=== PATIENT | male | born 1975 | race Caucasian/White ===

== ENCOUNTER 2023-10-19 08:47 | Outpatient (RCR) | payer MEDICAID, SELFPAY ==
[2023-10-19 09:21] VITALS: BP 190/87; PULSE 99; RESP 18; TEMP 37
--- NOTE | 2023-10-19 13:14 | HP.PCM_ITS ---
History of Present Illness Date of Service: 10/19/23 Chief Complaint: Nonhealing surgical wound History of Wound: Mr. Gusman is a 48-year-old referred to the wound center by his PCP due to nonhealing surgical wound. He had presented to the emergency room/hospital following a 2-week period of feeling unwell in August and subsequently went on to have surgery due to necrotizing fasciitis. Had a wound VAC post-surgery. He states that surgery was uneventful and wound healing process was also largely really good save for an area that has not closed. He has had a nurse come in for dressing. Reports a history of borderline diabetes however, his last A1c was at 6.6. History of tobacco use. He states that his appetite is good and he feels well otherwise. [facility] Medical History (Updated 10/19/23 @ 13:[address] Brenden Drummond MD) Tobacco abuse Obesity Type 2 diabetes mellitus Nonhealing surgical wound Encounter for screening for COVID-19 history of leg laceration and sutures neck and back pain Knee pain Home Medications ?Medication ?Instructions ?Recorded ?Last Taken ?Type acetaminophen 500 mg tablet 1,000 mg PO Q6H PRN pain 10/19/23 Unknown History (Tylenol Extra Strength) ergocalciferol (vitamin D2) 1,250 1,250 mcg PO QWEEK 10/19/23 Unknown History mcg (50,000 unit) capsule ibuprofen 600 mg tablet 600 mg PO Q6H 10/19/23 Unknown History pantoprazole 40 mg tablet,delayed 40 mg PO DAILY 10/19/23 Unknown History release Allergy/AdvReac Type Severity Reaction Status Date / Time No Known Allergies Allergy Verified 10/19/23 09:17 Social History Smoking Status: Current every day smoker alcohol intake: current ROS Constitutional Constitutional: Denies body ache(s), change in weight, fatigue, fever(s), frequent falls, headache(s) or increased appetite Eyes Eyes: Denies blindness, blind spots, bloody eye, blurry vision, change in eye color, decreased night vision, discharge from eye(s), discongugate gaze, double vision or dry eyes ENT HEENT: Denies abnormal hearing, change in voice, dental pain, dizziness, dry mouth, dysphagia, ear discharge, foreign body in nose, halitosis or headache(s) Cardiovascular Cardiovascular: Denies bluish discoloration of hand/feet, chest pain, claudication, cold extremities, cyanosis or diaphoresis Respiratory/Chest Respiratory/Chest: Denies difficulty clearing secretions, dry cough, excessive phlegm production, hemoptysis, hoarseness or inability to speak Gastrointestinal Gastrointestinal: Denies belching, chewing difficulty, coffee ground emesis, dry heaves, excessive flatus or fecal incontinence Genitourinary Genitourinary: Denies abdominal discomfort, difficulty urinating, flank pain, genital lesions or low back pain Musculoskeletal Musculoskeletal: Denies atrophy, joint swelling, loss of height, muscle cramps or muscle weakness Integumentary Integumentary: Reports non-healing lesions; Denies change in pigmentation, changing lesions, erythema, hirsutism or jaundice Neurologic Neurologic: Denies abnormal movements, abnormal speech, behavior changes, burning sensations, confusion, convulsions, disequilibrium or lack of coordination Psychiatric Psychiatric: Denies auditory hallucinations, behavioral changes, change in appetite, cognitive impairment, confusion, difficulty concentrating, hallucinations, tactile hallucinations or visual hallucinations Endocrine Endocrinology: Denies change in body appearance, cold intolerance, deepening of the voice, excessive sweating, heat intolerance or increase in ring/shoe/hat size Hematologic/Lymphatic Hematologic/Lymphatic: Denies easy bleeding, easy bruising or lymphadenopathy Allergic/Immunologic Allergic/Immunologic: Denies itchy eyes, lip swelling, rhinitis, throat swelling, tongue swelling, eczemia or wheezing Vital Signs Vital Signs Vital Signs: 10/19/23 09:21 Temperature 98.6 F Temperature Source Temporal Pulse Rate 99 Respiratory Rate 18 Blood Pressure 190/87 H Blood Pressure Mean 121 Blood Pressure Source Monitor Blood Pressure Position Semi-Fowlers Blood Pressure Location Left Arm Oxygen Delivery Method Room Air Physical Exam Const alert, oriented x3 and no apparent distress General Appearance: cooperative and comfortable HEENT normocephalic and head/scalp atraumatic Head and Scalp: normal to inspection Eyes EOMs intact bilaterally General Eye: normal appearance of both eyes Neck full ROM and supple General: normal visual inspection Resp normal respiratory effort and normal air movement Effort and Inspection: able to speak in complete sentences Cardio regular rate, regular rhythm, S1 normal heart sound and S2 normal heart sound GI soft to palpation and non-tender Extremity General Extremity: edema Skin Wounds: wounds noted margins well approximated, no odor and open Neuro oriented x3, CN's II-XII intact bilaterally, moves all extremities and no focal motor deficits Psych mental status grossly normal, thought process normal, cooperative, affect normal and speech normal Debridement Note Debridement Note Wound debrided: Lower back Type of Debridement: Excisional debridement Anesthesia Used: 4% Lidocaine Solution Depth: Down to and including healthy tissue and in the subcutaneous layer Percentage of wound debrided: 100 Instrument Used: 3mm curette Tissue Removed: Slough and devitalized tissue Severity: Fat Layer Exposed Amount of bleeding with debridement: Mild Bleeding Controlled with: Pressure Patient tolerated procedure: Patient tolerated procedure well Post-Debridement Measurements and Additional Note: Post-Debridement Measurements/Treatment CRISTOPHER - Nurse 1 - General Ulcer Assessment Start: 10/19/23 09:21 Freq: Status: Active Protocol: MARGARITO Activity Type Activity Date Activity User E-sign Co-sign Detail Recorded Client Recorded Date Recorded By Document 10/19/23 09:21 ELENO [id number] 10/19/23 09:33 ELENO 10/19/23 09:21 - Today's Visit Information Type of service Initial Visit Arrival Mode Ambulatory,Cane Patient Identification Verified (Name & Yes ) Vital Signs Temperature (97.8 F-99.1 F) 98.6 F Temperature Source Temporal Pulse Rate (60-100) 99 Pulse Location Monitor Respiratory Rate (12-18) 18 Respiratory rate source Observation Oxygen Delivery Method Room Air Blood Pressure (90/60-120/80) 190/87 H Blood Pressure Mean 121 Source Monitor Position Semi-Fowlers Blood Pressure Location Left Arm History Since Last Visit- (Skip if this is Patient's initial visit) Left Footwear Regular Shoe Right Footwear Regular Shoe Pain Scale: 0-10 Numeric Is Patient Pain Free? No RT BACK -Description Tightness -Alleviating Factors/Interventions Medication Communication Assessment Preferred language Dominican Interlocking Tower Operator Required No Able to Read Yes Able to Write Yes Communication Tools None Caregiver Communication Skills No Impairment Impairment Right Hearing Abillity Normal Left Hearing Abillity Normal Visual Assistive Devices None Teaching Assessment Preferences Verbal,Written, Demonstration Barriers to Learning None Readiness To Learn Excellent Willingness to Engage in Self Management High Activies Readiness to Engage in Self Management High Activities Anxiety Level Calm Cooperation Cooperative Perception Coherent Interest in Health Problem Asks Questions Education Importance Acknowledges Need Does Patient Smoke tobacco or other Yes substances Smoking Status Current every day smoker Is Patient Diabetic No Functional Assessment Recent Decline in Ability to Perform Denies Any Declines 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 Hoop Machine Operator to contact place of denominational No WC - Nurse 1 - General Ulcer Measurement Start: 10/19/23 09:21 Freq: Status: Active Protocol: Activity Type Activity Date Activity User E-sign Co-sign Detail Recorded Client Recorded Date Recorded By Document 10/19/23 09:21 [id number] 10/19/23 09:33 10/19/23 09:21 Wound Center Nurse 1 #1 MID BACK -Current Size (cm) - Length 0.6 -Current Size (cm) - Width 0.3 -Current Size (cm) - Depth 0.8 -Total Square Cm 0.18 -Date of Last Picture (Recall this 10/19/23 field) -Exudate Amt Small -Exudate Type Serosanguineous -Wound Margin Distinct, Outline Attached -Granulation Amt Small (1-33%) -Granulation Quality Lacoste -Necrosis Amt Large (67-100%) -Necrotic Tissue Type Adherent Slough -Texture (Iza-wound Skin Appearance) Assessed, Scarring -Moisture (Iza-wound Skin Appearance) Assessed -Color (Iza-wound Skin Appearance) Assessed -Temperature (Iza-wound Skin No Abnormality Appearance) (Pt Warm) -Tenderness on Palpation (Iza-wound No Skin Appearance) -Ulcer Cleansing Rinsed/ Irrigated with Saline -Foul Odor after Cleansing No -Anesthetic Used 5% Lidocaine Gel WC - Nurse 2 - General Ulcer CM Notes Start: 10/19/23 09:21 Freq: Status: Active Protocol: Activity Type Activity Date Activity User E-sign Co-sign Detail Recorded Client Recorded Date Recorded By Document 10/19/23 09:52 [id number] 10/19/23 10:04 10/19/23 09:52 Wound Center Nurse 2 -Time 09:53 -Correct Patient Yes -Correct Side, Site, Position Yes -Correct Procedure Yes -Procedure Performed Yes -Type of Procedure Debridement -Clinical Debridement Subcutaneous -Tissue Removed Subcutaneous -Post Debridement (cm) - Length 0.1 -Post Debridement (cm) - Width 0.8 -Post Debridement (cm) - Depth 1.7 -Total Square (Post) (cm) 0.08 -Area of Debridement (cm) - Length 0.1 -Area of Debridement (cm) - Width 0.8 -Total Square (Area) (cm) 0.08 -Tunneling No -Undermining/Tunneling No -Circular Undermining No -Wound/Ulcer Outcome Not Healed -Ulcer Cleansing Rinsed/ Irrigated with Saline -Foul Odor after Cleansing No -Bioengineered Tissue No -Bleeding Controlled with Pressure -Treatment Response Procedure Tolerated Well -Debridement - Subq, 1st 20sq cm Yes Pain Scale: 0-10 Numeric Is Patient Pain Free? Yes Charges/Coding Visit Charges Office Visits / Consults: [id number] OV L4 New 45min Procedures Integumentary 111xxx-113xx: 50307 Veronique subq tissue 20 sq cm/< Assessment/Plan Assessment/Plan (1) Nonhealing surgical wound: CODE(S): T81.89XA - Other complications of procedures, not elsewhere classified, initial encounter (2) Type 2 diabetes mellitus: CODE(S): E11.9 - Type 2 diabetes mellitus without complications (3) Obesity: CODE(S): E66.9 - Obesity, unspecified (4) Tobacco abuse: CODE(S): Z72.0 - Tobacco use PLAN: Plan Debridement done as documented above, procedure was well-tolerated. Significant depth on examination, no significant drainage however. Cultures taken, will review. For now, clean daily and pack with iodoform. Cover with gauze and tape. May change if soiled/soaked. He was advised that he is diabetic with an A1c of 6.6, lifestyle and dietary modifications recommended. Optimal protein intake and smoking cessation is also recommended. He voiced understanding. Will request labs/records from his recent hospital stay. His questions were answered and he was advised to call with any further questions or concerns. Follow-up in a week or sooner if needed. This note was generated with [employer] dictation software. It may contain incorrect words, spelling, and punctuation that were not noted in checking the note before signing.
--- NOTE | 2023-10-25 09:11 | WC ---
PHOTO 10/19/23 MID BACK
--- NOTE | 2023-10-27 08:59 | WC ---
PHOTO 10/19/23 MID BACK
== END 2023-10-21 23:59 | disposition home or self-care (01) ==
LOC: WC 08:47
PROVIDERS: PCP Nurse Practitioner Adult Health; Referring Provider Nurse Practitioner Adult Health; Visit Provider Internal Medicine
DX: T81.89XA Other complications of procedures, not elsewhere classified, initial encounter (principal); E11.9 Type 2 diabetes mellitus without complications; Y83.8 Other surgical procedures as the cause of abnormal reaction of the patient, or of later complication, without mention of misadventure at the time of the procedure; E66.9 Obesity, unspecified; F17.200 Nicotine dependence, unspecified, uncomplicated; Z79.899 Other long term (current) drug therapy
CPT/HCPCS: G0463; 11042; 87070; 87075; 87077; 87186; 87205; 99213; 99214

== ENCOUNTER 2023-11-16 11:15 | Outpatient (RCR) | payer MEDICAID, SELFPAY ==
[2023-10-22 00:35] VITALS: BP 190/87; PULSE 99; RESP 18; TEMP 37
[2023-10-26 11:01] VITALS: BP 159/96; PULSE 62; RESP 18; TEMP 36.6
--- NOTE | 2023-10-26 12:22 | PN.PCM_ITS ---
History of Present Illness Date of Service: 10/26/23 Chief Complaint: Nonhealing surgical wound History of Wound: Mr. Gusman is a 48-year-old referred to the wound center by his PCP due to nonhealing surgical wound. He had presented to the emergency room/hospital following a 2-week period of feeling unwell in August and subsequently went on to have surgery due to necrotizing fasciitis. Had a wound VAC post-surgery. He states that surgery was uneventful and wound healing process was also largely really good save for an area that has not closed. He has had a nurse come in for dressing. Reports a history of borderline diabetes however, his last A1c was at 6.6. History of tobacco use. He states that his appetite is good and he feels well otherwise. Progress of Wound: Here for follow-up. No acute concerns reported. He states that his dressing changes have been done as recommended. Some improvement reported. Objective Data Objective Data Vital Signs: Vital Signs Temp Pulse Resp BP O2 Del Method 97.8 F 62 18 159/96 H Room Air 10/26/23 11:10/26/23 11:10/26/23 11:10/26/23 11:10/26/23 11:01 Oxygen Delivery Method Room Air Charges/Coding Procedures Integumentary 111xxx-113xx: 90807 Veronique subq tissue 20 sq cm/< Physical Exam Const alert, oriented x3 and no apparent distress General Appearance: cooperative and comfortable HEENT normocephalic and head/scalp atraumatic Head and Scalp: normal to inspection Eyes EOMs intact bilaterally General Eye: normal appearance of both eyes Neck full ROM and supple General: normal visual inspection Resp normal respiratory effort Effort and Inspection: able to speak in complete sentences Skin Wounds: wounds noted margins well approximated, no odor and open Neuro oriented x3, CN's II-XII intact bilaterally, moves all extremities and no focal motor deficits Psych mental status grossly normal, thought process normal, cooperative, affect normal and speech normal Debridement Note Debridement Note Wound debrided: Back Type of Debridement: Excisional debridement Anesthesia Used: 4% Lidocaine Solution Depth: Down to and including healthy tissue and in the subcutaneous layer Percentage of wound debrided: 100 Instrument Used: 3mm curette Tissue Removed: Slough and devitalized tissue Severity: Fat Layer Exposed Amount of bleeding with debridement: Mild Bleeding Controlled with: Pressure Patient tolerated procedure: Patient tolerated procedure well Post-Debridement Measurements and Additional Note: Post-Debridement Measurements/Treatment CRISTOPHER Hopkins Nurse 1 - General Ulcer Assessment Start: 10/26/23 11:01 Freq: Status: Active Protocol: MARGARITO Activity Type Activity Date Activity User E-sign Co-sign Detail Recorded Client Recorded Date Recorded By Document 10/26/23 11:01 ELENO [id number] 10/26/23 11:08 10/26/23 11:01 - Today's Visit Information Type of service Follow-up Visit (Physician/CLEANING SPECIALIST ) Arrival Mode Ambulatory,Cane Patient Identification Verified (Name & Yes ) Vital Signs Temperature (97.8 F-99.1 F) 97.8 F Temperature Source Temporal Pulse Rate (60-100) 62 Pulse Location Monitor Respiratory Rate (12-18) 18 Respiratory rate source Observation Oxygen Delivery Method Room Air Blood Pressure (90/60-120/80) 159/96 H Blood Pressure Mean (mm Hg) 117 Source Monitor Position Sitting Blood Pressure Location Left Arm History Since Last Visit- (Skip if this is Patient's initial visit) Have you changed medications since your No last visit? Any new allergies or adverse reactions No Had a fall/change in ADL's that may No increase risk of falls Signs or symptoms of abuse and/or No neglect since last visit Have you been in the hospital since your No last visit? Has dressing in place as prescribed Yes Has compression in place as prescribed N/A Has offloadiing in place as prescribed N/A Experienced any changes in pain level or No management Left Footwear Regular Shoe Right Footwear Regular Shoe Pain Scale: 0-10 Numeric Is Patient Pain Free? Yes Sandeep Nurse 1 - General Ulcer Measurement Start: 10/26/23 11:01 Freq: Status: Active Protocol: Activity Type Activity Date Activity User E-sign Co-sign Detail Recorded Client Recorded Date Recorded By Document 10/26/23 11:01 ELENO [id number] 10/26/23 11:08 10/26/23 11:01 Wound Center Nurse 1 #1 MID BACK -Current Size (cm) - Length 0.1 -Current Size (cm) - Width 0.4 -Current Size (cm) - Depth 1.1 -Total Square Cm 0.04 -Date of Last Picture (Recall this 10/26/23 field) -Exudate Amt Small -Exudate Type Serosanguineous -Wound Margin Distinct, Outline Attached -Granulation Amt Small (1-33%) -Granulation Quality Red -Texture (Iza-wound Skin Appearance) Assessed -Moisture (Iza-wound Skin Appearance) Assessed -Color (Iza-wound Skin Appearance) Assessed -Temperature (Iza-wound Skin No Abnormality Appearance) (Pt Warm) -Tenderness on Palpation (Iza-wound No Skin Appearance) -Ulcer Cleansing Rinsed/ Irrigated with Saline -Foul Odor after Cleansing No -Anesthetic Used 5% Lidocaine Gel WC - Nurse 2 - General Ulcer CM Notes Start: 10/26/23 11:01 Freq: Status: Active Protocol: Activity Type Activity Date Activity User E-sign Co-sign Detail Recorded Client Recorded Date Recorded By Document 10/26/23 11:23 DS [id number] 10/26/23 11:28 DS 10/26/23 11:23 Wound Center Nurse 2 -Time 11:24 -Correct Patient Yes -Correct Side, Site, Position Yes -Correct Procedure Yes -Procedure Performed Yes -Type of Procedure Debridement -Clinical Debridement Subcutaneous -Tissue Removed Subcutaneous -Post Debridement (cm) - Length 0.1 -Post Debridement (cm) - Width 0.7 -Post Debridement (cm) - Depth 1.3 -Total Square (Post) (cm) 0.07 -Area of Debridement (cm) - Length 0.1 -Area of Debridement (cm) - Width 0.7 -Total Square (Area) (cm) 0.07 -Tunneling No -Undermining/Tunneling No -Circular Undermining No -Wound/Ulcer Outcome Not Healed -Ulcer Cleansing Rinsed/ Irrigated with Saline -Bioengineered Tissue No -Bleeding Controlled with Pressure -Treatment Response Procedure Tolerated Well -Debridement - Subq, 1st 20sq cm Yes Pain Scale: 0-10 Numeric Is Patient Pain Free? Yes - Nurse 3 - General Ulcer D/C NN Start: 10/26/23 11:01 Freq: Status: Active Protocol: Activity Type Activity Date Activity User E-sign Co-sign Detail Recorded Client Recorded Date Recorded By Document 10/26/23 11:46 CP [id number] 10/26/23 11:47 CP 10/26/23 11:46 Wound Care Center Nurse 3 #1 MID BACK -Ulcer Cleansing Rinsed/ Irrigated with Saline -Other Dressing iodoform -Primary Dressing Covered/Secured with Dry Gauze, Secured with Tape Treatment Response Procedure Tolerated Well Pain Scale: 0-10 Numeric Is Patient Pain Free? Yes WC - Visit Discharge Discharge Condition Stable Ambulatory Status Ambulatory,Cane Transportation Private Auto Clinical Summary of Care Provided Yes Assessment/Plan Assessment/Plan (1) Nonhealing surgical wound: CODE(S): T81.89XA - Other complications of procedures, not elsewhere classified, initial encounter (2) Type 2 diabetes mellitus: CODE(S): E11.9 - Type 2 diabetes mellitus without complications (3) Obesity: CODE(S): E66.9 - Obesity, unspecified (4) Tobacco abuse: CODE(S): Z72.0 - Tobacco use PLAN: Plan Debridement done as documented above, procedure was well-tolerated. No acute concerns at this time. Some improvement noted compared to his last visit. Culture and sensitivity reviewed, prescription for ciprofloxacin sent. Continue iodoform packing, cover with gauze and tape. May change twice daily if needed. Dietary/lifestyle modifications and smoking cessation also discussed. Continue optimal protein intake. He voiced understanding. His questions were answered and he was advised to call with any further questions or concerns. Follow-up in a week or sooner if needed. This note was generated with [employer] dictation software. It may contain incorrect words, spelling, and punctuation that were not noted in checking the note before signing.
[2023-11-02 11:18] VITALS: BP 148/88; RESP 18; TEMP 36.8
--- NOTE | 2023-11-02 12:58 | PCM.WC.PN ---
History of Present Illness Date of Service: 11/02/23 Chief Complaint: Nonhealing surgical wound History of Wound: Mr. Gusman is a 48-year-old referred to the wound center by his PCP due to nonhealing surgical wound. He had presented to the emergency room/hospital following a 2-week period of feeling unwell in August and subsequently went on to have surgery due to necrotizing fasciitis. Had a wound VAC post-surgery. He states that surgery was uneventful and wound healing process was also largely really good save for an area that has not closed. He has had a nurse come in for dressing. Reports a history of borderline diabetes however, his last A1c was at 6.6. History of tobacco use. He states that his appetite is good and he feels well otherwise. Progress of Wound: Minimal change since his last visit. He had no acute concerns stating that dressing changes have been done as recommended. Objective Data Objective Data Vital Signs: Vital Signs Temp Pulse Resp BP O2 Del Method 98.2 F 62 18 148/88 H Room Air 11/02/23 11:18 10/26/23 11:01 11/02/23 11:18 11/02/23 11:18 11/02/23 11:18 Oxygen Delivery Method Room Air Charges/Coding Procedures Integumentary 111xxx-113xx: 01661 Veronique subq tissue 20 sq cm/< Physical Exam Const alert, oriented x3 and no apparent distress General Appearance: cooperative and comfortable HEENT normocephalic and head/scalp atraumatic Head and Scalp: normal to inspection Eyes EOMs intact bilaterally General Eye: normal appearance of both eyes Neck full ROM and supple General: normal visual inspection Resp normal respiratory effort Effort and Inspection: able to speak in complete sentences Skin Wounds: wounds noted margins well approximated, no odor and open Neuro oriented x3, CN's II-XII intact bilaterally, moves all extremities and no focal motor deficits Psych mental status grossly normal, thought process normal, cooperative, affect normal and speech normal Debridement Note Debridement Note Wound debrided: Back Type of Debridement: Excisional debridement Anesthesia Used: 5% Lidocaine Gel Depth: Down to and including healthy tissue and in the subcutaneous layer Percentage of wound debrided: 100 Instrument Used: 3mm curette Tissue Removed: Slough and devitalized tissue Severity: Fat Layer Exposed Amount of bleeding with debridement: Mild Bleeding Controlled with: Pressure Patient tolerated procedure: Patient tolerated procedure well Post-Debridement Measurements and Additional Note: Post-Debridement Measurements/Treatment CRISTOPHER - Nurse 1 - General Ulcer Assessment Start: 10/26/23 11:01 Freq: Status: Active Protocol: MARGARITO Activity Type Activity Date Activity User E-sign Co-sign Detail Recorded Client Recorded Date Recorded By Document 10/26/23 11:01 KW [id number] 10/26/23 11:08 KW Document 11/02/23 11:18 KW [id number] 11/02/23 11:25 KW 10/26/23 11/02/23 11:01 11:18 WC - Today's Visit Information Type of service Follow-up Visit Follow-up Visit (Physician/METAL WINDOW SCREEN ASSEMBLER (Physician/METAL WINDOW SCREEN ASSEMBLER ) ) Arrival Mode Ambulatory,Cane Ambulatory,Cane Patient Identification Verified (Name & Yes Yes ) Vital Signs Temperature (97.8 F-99.1 F) 97.8 F 98.2 F Temperature Source Temporal Temporal Pulse Rate (60-100) 62 Pulse Location Monitor Monitor Respiratory Rate (12-18) 18 18 Respiratory rate source Observation Observation Oxygen Delivery Method Room Air Room Air Blood Pressure (90/60-120/80) 159/96 H 148/88 H Blood Pressure Mean (mm Hg) 117 108 Source Monitor Monitor Position Sitting Sitting Blood Pressure Location Left Arm Left Arm History Since Last Visit- (Skip if this is Patient's initial visit) Have you changed medications since your No No last visit? Any new allergies or adverse reactions No No Had a fall/change in ADL's that may No No increase risk of falls Signs or symptoms of abuse and/or No No neglect since last visit Have you been in the hospital since your No No last visit? Has dressing in place as prescribed Yes Yes Has compression in place as prescribed N/A N/A Has offloadiing in place as prescribed N/A N/A Experienced any changes in pain level or No No management Left Footwear Regular Shoe Regular Shoe Right Footwear Regular Shoe Regular Shoe Pain Scale: 0-10 Numeric Is Patient Pain Free? Yes Yes - Nurse 1 - General Ulcer Measurement Start: 10/26/23 11:01 Freq: Status: Active Protocol: Activity Type Activity Date Activity User E-sign Co-sign Detail Recorded Client Recorded Date Recorded By Document 10/26/23 11:01 KW [id number] 10/26/23 11:08 KW Document 11/02/23 11:18 KW [id number] 11/02/23 11:25 KW 10/26/23 11/02/23 11:01 11:18 Wound Center Nurse 1 #1 MID BACK -Current Size (cm) - Length 0.1 0.2 -Current Size (cm) - Width 0.4 0.6 -Current Size (cm) - Depth 1.1 0.5 -Total Square Cm 0.04 0.12 -Date of Last Picture (Recall this 10/26/23 field) -Exudate Amt Small Small -Exudate Type Serosanguineous Serosanguineous -Wound Margin Distinct, Distinct, Outline Outline Attached Attached -Granulation Amt Small (1-33%) Large (67-100%) -Granulation Quality Red Red -Texture (Iza-wound Skin Appearance) Assessed Assessed -Moisture (Iza-wound Skin Appearance) Assessed Assessed -Color (Iza-wound Skin Appearance) Assessed Assessed -Temperature (Iza-wound Skin No Abnormality No Abnormality Appearance) (Pt Warm) (Pt Warm) -Tenderness on Palpation (Iza-wound No No Skin Appearance) -Ulcer Cleansing Rinsed/ Rinsed/ Irrigated with Irrigated with Saline Saline -Foul Odor after Cleansing No No -Anesthetic Used 5% Lidocaine 5% Lidocaine Gel Gel WC - Nurse 2 - General Ulcer CM Notes Start: 10/26/23 11:01 Freq: Status: Active Protocol: Activity Type Activity Date Activity User E-sign Co-sign Detail Recorded Client Recorded Date Recorded By Document 10/26/23 11:23 DS [id number] 10/26/23 11:28 DS Document 11/02/23 11:40 [id number] 11/02/23 11:43 10/26/23 11/02/23 11:23 11:40 Wound Center Nurse 2 #1 MID BACK -Time 11:24 11:40 -Correct Patient Yes Yes -Correct Side, Site, Position Yes Yes -Correct Procedure Yes Yes -Procedure Performed Yes Yes -Type of Procedure Debridement Debridement -Clinical Debridement Subcutaneous Subcutaneous -Tissue Removed Subcutaneous Subcutaneous -Post Debridement (cm) - Length 0.1 0.1 -Post Debridement (cm) - Width 0.7 0.8 -Post Debridement (cm) - Depth 1.3 1.3 -Total Square (Post) (cm) 0.07 0.08 -Area of Debridement (cm) - Length 0.1 0.1 -Area of Debridement (cm) - Width 0.7 0.8 -Total Square (Area) (cm) 0.07 0.08 -Tunneling No No -Undermining/Tunneling No No -Circular Undermining No No -Wound/Ulcer Outcome Not Healed Not Healed -Ulcer Cleansing Rinsed/ Rinsed/ Irrigated with Irrigated with Saline Saline -Foul Odor after Cleansing No -Bioengineered Tissue No No -Bleeding Controlled with Pressure Pressure -Treatment Response Procedure Procedure Tolerated Well Tolerated Well -Debridement - Subq, 1st 20sq cm Yes Yes Pain Scale: 0-10 Numeric Is Patient Pain Free? Yes Yes - Nurse 3 - General Ulcer D/C NN Start: 10/26/23 11:01 Freq: Status: Active Protocol: Activity Type Activity Date Activity User E-sign Co-sign Detail Recorded Client Recorded Date Recorded By Document 10/26/23 11:46 CP [id number] 10/26/23 11:47 CP Document 11/02/23 11:57 KW [id number] 11/02/23 11:58 10/26/23 11/02/23 11:46 11:57 Wound Care Center Nurse 3 #1 MID BACK -Ulcer Cleansing Rinsed/ Irrigated with Saline -Primary Dressing Applied Aquacel Extra -Other Dressing iodoform -Primary Dressing Covered/Secured with Dry Gauze, Dry Gauze, Secured with Secured with Tape Tape -Aquacel Extra 1 Treatment Response Procedure Tolerated Well Pain Scale: 0-10 Numeric Is Patient Pain Free? Yes Yes - Visit Discharge Discharge Condition Stable Stable Ambulatory Status Ambulatory,Cane Ambulatory,Cane Transportation Private Auto Private Auto Clinical Summary of Care Provided Yes Assessment/Plan Assessment/Plan (1) Nonhealing surgical wound: CODE(S): T81.89XA - Other complications of procedures, not elsewhere classified, initial encounter (2) Type 2 diabetes mellitus: CODE(S): E11.9 - Type 2 diabetes mellitus without complications (3) Obesity: CODE(S): E66.9 - Obesity, unspecified (4) Tobacco abuse: CODE(S): Z72.0 - Tobacco use PLAN: Plan Debridement done as documented above, procedure was well-tolerated. Very minimal improvement in depth. Switch from iodoform to Aquacel extra. Change daily to twice daily as needed. Dietary/lifestyle modifications and smoking cessation also discussed. Continue optimal protein intake. He voiced understanding. His questions were answered and he was advised to call with any further questions or concerns. Follow-up in a week or sooner if needed. This note was generated with [employer] dictation software. It may contain incorrect words, spelling, and punctuation that were not noted in checking the note before signing.
[2023-11-09 11:15] VITALS: BP 161/102; PULSE 77; RESP 18; TEMP 37
--- NOTE | 2023-11-09 11:52 | PCM.WC.PN ---
History of Present Illness Date of Service: 11/09/23 Chief Complaint: Nonhealing surgical wound History of Wound: Mr. Gusman is a 48-year-old referred to the wound center by his PCP due to nonhealing surgical wound. He had presented to the emergency room/hospital following a 2-week period of feeling unwell in August and subsequently went on to have surgery due to necrotizing fasciitis. Had a wound VAC post-surgery. He states that surgery was uneventful and wound healing process was also largely really good save for an area that has not closed. He has had a nurse come in for dressing. Reports a history of borderline diabetes however, his last A1c was at 6.6. History of tobacco use. He states that his appetite is good and he feels well otherwise. Progress of Wound: No new concerns reported at this time. Switched to Aquacel extra at his last visit, some improvement noted this week. Objective Data Objective Data Vital Signs: Vital Signs Temp Pulse Resp BP O2 Del Method 98.6 F 77 18 161/102 H Room Air 11/09/23 11:15 11/09/23 11:15 11/09/23 11:15 11/09/23 11:15 11/09/23 11:15 Oxygen Delivery Method Room Air Charges/Coding Procedures Integumentary 111xxx-113xx: 37610 Veronique subq tissue 20 sq cm/< Physical Exam Const alert, oriented x3 and no apparent distress General Appearance: cooperative and comfortable HEENT normocephalic and head/scalp atraumatic Head and Scalp: normal to inspection Eyes EOMs intact bilaterally General Eye: normal appearance of both eyes Neck full ROM and supple General: normal visual inspection Resp normal respiratory effort Effort and Inspection: able to speak in complete sentences Skin Wounds: wounds noted margins well approximated, no odor and open Neuro oriented x3, CN's II-XII intact bilaterally, moves all extremities and no focal motor deficits Psych mental status grossly normal, thought process normal, cooperative, affect normal and speech normal Debridement Note Debridement Note Wound debrided: Back Type of Debridement: Excisional debridement Anesthesia Used: 4% Lidocaine Solution Depth: Down to and including healthy tissue and in the subcutaneous layer Percentage of wound debrided: 100 Instrument Used: 3mm curette Tissue Removed: Slough and devitalized tissue Severity: Fat Layer Exposed Amount of bleeding with debridement: Mild Bleeding Controlled with: Pressure Patient tolerated procedure: Patient tolerated procedure well Post-Debridement Measurements and Additional Note: Post-Debridement Measurements/Treatment WC - Nurse 1 - General Ulcer Assessment Start: 10/26/23 11:01 Freq: Status: Active Protocol: MARGARITO Activity Type Activity Date Activity User E-sign Co-sign Detail Recorded Client Recorded Date Recorded By Document 10/26/23 11:01 KW [id number] 10/26/23 11:08 KW Document 11/02/23 11:18 KW [id number] 11/02/23 11:25 KW Document 11/09/23 11:15 DS [id number] 11/09/23 11:17 DS 10/26/23 11/02/23 11/09/23 11:01 11:18 11:15 WC - Today's Visit Information Type of service Follow-up Visit Follow-up Visit Follow-up Visit (Physician/APARTMENT LOCATOR (Physician/APARTMENT LOCATOR (Physician/APARTMENT LOCATOR ) ) ) Arrival Mode Ambulatory,Cane Ambulatory,Cane Ambulatory Patient Identification Verified (Name & Yes Yes ) Safety Precautions Fall Prevention Vital Signs Temperature (97.8 F-99.1 F) 97.8 F 98.2 F 98.6 F Temperature Source Temporal Temporal Temporal Pulse Rate (60-100) 62 77 Pulse Location Monitor Monitor Monitor Respiratory Rate (12-18) 18 18 18 Respiratory rate source Observation Observation Oxygen Delivery Method Room Air Room Air Room Air Blood Pressure (90/60-120/80) 159/96 H 148/88 H 161/102 H Blood Pressure Mean (mm Hg) 117 108 121 Source Monitor Monitor Monitor Position Sitting Sitting Sitting Blood Pressure Location Left Arm Left Arm Right Arm History Since Last Visit- (Skip if this is Patient's initial visit) Have you changed medications since your No No No last visit? Any new allergies or adverse reactions No No No Had a fall/change in ADL's that may No No No increase risk of falls Signs or symptoms of abuse and/or No No No neglect since last visit Have you been in the hospital since your No No No last visit? Has dressing in place as prescribed Yes Yes Yes Has compression in place as prescribed N/A N/A N/A Has offloadiing in place as prescribed N/A N/A N/A Experienced any changes in pain level or No No No management Left Footwear Regular Shoe Regular Shoe Regular Shoe Right Footwear Regular Shoe Regular Shoe Regular Shoe Pain Scale: 0-10 Numeric Is Patient Pain Free? Yes Yes Yes WC - Nurse 1 - General Ulcer Measurement Start: 10/26/23 11:01 Freq: Status: Active Protocol: Activity Type Activity Date Activity User E-sign Co-sign Detail Recorded Client Recorded Date Recorded By Document 10/26/23 11:01 KW [id number] 10/26/23 11:08 KW Document 11/02/23 11:18 KW [id number] 11/02/23 11:25 KW Document 11/09/23 11:17 DS [id number] 11/09/23 11:25 DS 10/26/23 11/02/23 11/09/23 11:01 11:18 11:17 Wound Center Nurse 1 #1 MID BACK -Current Size (cm) - Length 0.1 0.2 0.1 -Current Size (cm) - Width 0.4 0.6 0.5 -Current Size (cm) - Depth 1.1 0.5 0.3 -Total Square Cm 0.04 0.12 0.05 -Date of Last Picture (Recall this 10/26/23 field) -Photo Taken No -Undermining/Tunneling No -Circular Undermining No -Classification - Thickness Partial Thickness -Exudate Amt Small Small None Present -Exudate Type Serosanguineous Serosanguineous -Wound Margin Distinct, Distinct, Outline Outline Attached Attached -Granulation Amt Small (1-33%) Large (67-100%) -Granulation Quality Red Red -Texture (Iza-wound Skin Appearance) Assessed Assessed Assessed -Moisture (Iza-wound Skin Appearance) Assessed Assessed Assessed -Color (Iza-wound Skin Appearance) Assessed Assessed Assessed -Temperature (Iza-wound Skin No Abnormality No Abnormality No Abnormality Appearance) (Pt Warm) (Pt Warm) (Pt Warm) -Tenderness on Palpation (Iza-wound No No No Skin Appearance) -Ulcer Cleansing Rinsed/ Rinsed/ Soap and Water Irrigated with Irrigated with Saline Saline -Foul Odor after Cleansing No No -Anesthetic Used 5% Lidocaine 5% Lidocaine 5% Lidocaine Gel Gel Gel WC - Nurse 2 - General Ulcer CM Notes Start: 10/26/23 11:01 Freq: Status: Active Protocol: Activity Type Activity Date Activity User E-sign Co-sign Detail Recorded Client Recorded Date Recorded By Document 10/26/23 11:23 DS [id number] 10/26/23 11:28 DS Document 11/02/23 11:40 GM [id number] 11/02/23 11:43 GM Document 11/09/23 11:36 GM [id number] 11/09/23 11:39 GM 10/26/23 11/02/23 11/09/23 11:23 11:40 11:36 Wound Center Nurse 2 #1 MID BACK -Time 11:24 11:40 11:36 -Correct Patient Yes Yes Yes -Correct Side, Site, Position Yes Yes Yes -Correct Procedure Yes Yes Yes -Procedure Performed Yes Yes Yes -Type of Procedure Debridement Debridement Debridement -Clinical Debridement Subcutaneous Subcutaneous Subcutaneous -Tissue Removed Subcutaneous Subcutaneous Subcutaneous -Post Debridement (cm) - Length 0.1 0.1 0.1 -Post Debridement (cm) - Width 0.7 0.8 0.6 -Post Debridement (cm) - Depth 1.3 1.3 1.0 -Total Square (Post) (cm) 0.07 0.08 0.06 -Area of Debridement (cm) - Length 0.1 0.1 0.1 -Area of Debridement (cm) - Width 0.7 0.8 0.6 -Total Square (Area) (cm) 0.07 0.08 0.06 -Tunneling No No No -Undermining/Tunneling No No No -Circular Undermining No No No -Wound/Ulcer Outcome Not Healed Not Healed Not Healed -Ulcer Cleansing Rinsed/ Rinsed/ Rinsed/ Irrigated with Irrigated with Irrigated with Saline Saline Saline -Foul Odor after Cleansing No No -Bioengineered Tissue No No No -Bleeding Controlled with Pressure Pressure Pressure -Treatment Response Procedure Procedure Procedure Tolerated Well Tolerated Well Tolerated Well -Debridement - Subq, 1st 20sq cm Yes Yes Yes Pain Scale: 0-10 Numeric Is Patient Pain Free? Yes Yes Yes WC - Nurse 3 - General Ulcer D/C NN Start: 10/26/23 11:01 Freq: Status: Active Protocol: Activity Type Activity Date Activity User E-sign Co-sign Detail Recorded Client Recorded Date Recorded By Document 10/26/23 11:46 CP [id number] 10/26/23 11:47 CP Document 11/02/23 11:57 KW [id number] 11/02/23 11:58 KW Document 11/09/23 11:46 KW [id number] 11/09/23 11:46 KW 10/26/23 11/02/23 11/09/23 11:46 11:57 11:46 Wound Care Center Nurse 3 #1 MID BACK -Ulcer Cleansing Rinsed/ Irrigated with Saline -Primary Dressing Applied Aquacel Extra Aquacel Extra -Other Dressing iodoform -Primary Dressing Covered/Secured with Dry Gauze, Dry Gauze, Dry Gauze, Secured with Secured with Secured with Tape Tape Tape -Aquacel Extra 1 1 Treatment Response Procedure Tolerated Well Pain Scale: 0-10 Numeric Is Patient Pain Free? Yes Yes Yes WC - Visit Discharge Discharge Condition Stable Stable Ambulatory Status Ambulatory,Cane Ambulatory,Cane Transportation Private Auto Private Auto Clinical Summary of Care Provided Yes Assessment/Plan Assessment/Plan (1) Nonhealing surgical wound: CODE(S): T81.89XA - Other complications of procedures, not elsewhere classified, initial encounter (2) Type 2 diabetes mellitus: CODE(S): E11.9 - Type 2 diabetes mellitus without complications (3) Obesity: CODE(S): E66.9 - Obesity, unspecified (4) Tobacco abuse: CODE(S): Z72.0 - Tobacco use PLAN: Plan Debridement done as documented above, procedure was well-tolerated. Some improvement noted this week, seems to be doing better with Aquacel extra. Continue same and change daily to twice daily as needed. Dietary/lifestyle modifications and smoking cessation also discussed. Continue optimal protein intake. He voiced understanding. His questions were answered and he was advised to call with any further questions or concerns. Follow-up in a week or sooner if needed. This note was generated with [email or web address] dictation software. It may contain incorrect words, spelling, and punctuation that were not noted in checking the note before signing.
[2023-11-16 11:15] VITALS: BP 168/90; PULSE 76; RESP 18; TEMP 36.5
--- NOTE | 2023-11-16 12:00 | PCM.WC.PN ---
History of Present Illness Date of Service: 11/16/23 Chief Complaint: Nonhealing surgical wound History of Wound: Mr. Gusman is a 48-year-old referred to the wound center by his PCP due to nonhealing surgical wound. He had presented to the emergency room/hospital following a 2-week period of feeling unwell in August and subsequently went on to have surgery due to necrotizing fasciitis. Had a wound VAC post-surgery. He states that surgery was uneventful and wound healing process was also largely really good save for an area that has not closed. He has had a nurse come in for dressing. Reports a history of borderline diabetes however, his last A1c was at 6.6. History of tobacco use. He states that his appetite is good and he feels well otherwise. Progress of Wound: His significant other reports increased drainage in the past week. Increase in depth and circumference also noted. He denies pain, chills, fever or otherwise feeling of unwell. Objective Data Objective Data Vital Signs: Vital Signs Temp Pulse Resp BP O2 Del Method 97.7 F L 76 18 168/90 H Room Air 11/16/23 11:15 11/16/23 11:15 11/16/23 11:15 11/16/23 11:15 11/16/23 11:15 Oxygen Delivery Method Room Air Charges/Coding Procedures Integumentary 111xxx-113xx: 75560 Veronique subq tissue 20 sq cm/< Physical Exam Const alert, oriented x3 and no apparent distress General Appearance: cooperative and comfortable HEENT normocephalic and head/scalp atraumatic Head and Scalp: normal to inspection Eyes EOMs intact bilaterally General Eye: normal appearance of both eyes Neck full ROM and supple General: normal visual inspection Resp normal respiratory effort Effort and Inspection: able to speak in complete sentences Skin Wounds: wounds noted margins well approximated, no odor and open Neuro oriented x3, CN's II-XII intact bilaterally, moves all extremities and no focal motor deficits Psych mental status grossly normal, thought process normal, cooperative, affect normal and speech normal Debridement Note Debridement Note Wound debrided: Back Type of Debridement: Excisional debridement Anesthesia Used: 4% Lidocaine Solution Depth: Down to and including healthy tissue and in the subcutaneous layer Percentage of wound debrided: 100 Instrument Used: 3mm curette Tissue Removed: Devitalized tissue Severity: Fat Layer Exposed Amount of bleeding with debridement: Mild Bleeding Controlled with: Pressure Patient tolerated procedure: Patient tolerated procedure well Post-Debridement Measurements and Additional Note: Post-Debridement Measurements/Treatment WC - Nurse 1 - General Ulcer Assessment Start: 10/26/23 11:01 Freq: Status: Active Protocol: MARGARITO Activity Type Activity Date Activity User E-sign Co-sign Detail Recorded Client Recorded Date Recorded By Document 10/26/23 11:01 KW [id number] 10/26/23 11:08 KW Document 11/02/23 11:18 KW [id number] 11/02/23 11:25 KW Document 11/09/23 11:15 DS [id number] 11/09/23 11:17 DS Document 11/16/23 11:15 KW [id number] 11/16/23 11:20 KW 10/26/23 11/02/23 11/09/23 11:01 11:18 11:15 - Today's Visit Information Type of service Follow-up Visit Follow-up Visit Follow-up Visit (Physician/DENTAL CLAIMS PROCESSOR (Physician/DENTAL CLAIMS PROCESSOR (Physician/DENTAL CLAIMS PROCESSOR ) ) ) Arrival Mode Ambulatory,Cane Ambulatory,Cane Ambulatory Patient Identification Verified (Name & Yes Yes ) Safety Precautions Fall Prevention Vital Signs Temperature (97.8 F-99.1 F) 97.8 F 98.2 F 98.6 F Temperature Source Temporal Temporal Temporal Pulse Rate (60-100) 62 77 Pulse Location Monitor Monitor Monitor Respiratory Rate (12-18) 18 18 18 Respiratory rate source Observation Observation Oxygen Delivery Method Room Air Room Air Room Air Blood Pressure (90/60-120/80) 159/96 H 148/88 H 161/102 H Blood Pressure Mean (mm Hg) 117 108 121 Source Monitor Monitor Monitor Position Sitting Sitting Sitting Blood Pressure Location Left Arm Left Arm Right Arm History Since Last Visit- (Skip if this is Patient's initial visit) Have you changed medications since your No No No last visit? Any new allergies or adverse reactions No No No Had a fall/change in ADL's that may No No No increase risk of falls Signs or symptoms of abuse and/or No No No neglect since last visit Have you been in the hospital since your No No No last visit? Has dressing in place as prescribed Yes Yes Yes Has compression in place as prescribed N/A N/A N/A Has offloadiing in place as prescribed N/A N/A N/A Experienced any changes in pain level or No No No management Left Footwear Regular Shoe Regular Shoe Regular Shoe Right Footwear Regular Shoe Regular Shoe Regular Shoe Pain Scale: 0-10 Numeric Is Patient Pain Free? Yes Yes Yes 11/16/23 11:15 WC - Today's Visit Information Type of service Follow-up Visit (Physician/DENTAL CLAIMS PROCESSOR ) Arrival Mode Ambulatory,Cane Patient Identification Verified (Name & Yes ) Safety Precautions Vital Signs Temperature (97.8 F-99.1 F) 97.7 F L Temperature Source Temporal Pulse Rate (60-100) 76 Pulse Location Monitor Respiratory Rate (12-18) 18 Respiratory rate source Observation Oxygen Delivery Method Room Air Blood Pressure (90/60-120/80) 168/90 H Blood Pressure Mean (mm Hg) 116 Source Monitor Position Sitting Blood Pressure Location Left Arm History Since Last Visit- (Skip if this is Patient's initial visit) Have you changed medications since your No last visit? Any new allergies or adverse reactions No Had a fall/change in ADL's that may No increase risk of falls Signs or symptoms of abuse and/or No neglect since last visit Have you been in the hospital since your No last visit? Has dressing in place as prescribed Yes Has compression in place as prescribed N/A Has offloadiing in place as prescribed N/A Experienced any changes in pain level or No management Left Footwear Regular Shoe Right Footwear Regular Shoe Pain Scale: 0-10 Numeric Is Patient Pain Free? Yes - Nurse 1 - General Ulcer Measurement Start: 10/26/23 11:01 Freq: Status: Active Protocol: Activity Type Activity Date Activity User E-sign Co-sign Detail Recorded Client Recorded Date Recorded By Document 10/26/23 11:01 KW [id number] 10/26/23 11:08 KW Document 11/02/23 11:18 KW [id number] 11/02/23 11:25 KW Document 11/09/23 11:17 DS [id number] 11/09/23 11:25 DS Document 11/16/23 11:15 KW [id number] 11/16/23 11:20 KW 10/26/23 11/02/23 11/09/23 11:01 11:18 11:17 Wound Center Nurse 1 #1 MID BACK -Current Size (cm) - Length 0.1 0.2 0.1 -Current Size (cm) - Width 0.4 0.6 0.5 -Current Size (cm) - Depth 1.1 0.5 0.3 -Total Square Cm 0.04 0.12 0.05 -Date of Last Picture (Recall this 10/26/23 field) -Photo Taken No -Undermining/Tunneling No -Circular Undermining No -Classification - Thickness Partial Thickness -Exudate Amt Small Small None Present -Exudate Type Serosanguineous Serosanguineous -Wound Margin Distinct, Distinct, Outline Outline Attached Attached -Granulation Amt Small (1-33%) Large (67-100%) -Granulation Quality Red Red -Texture (Zia-wound Skin Appearance) Assessed Assessed Assessed -Moisture (Iza-wound Skin Appearance) Assessed Assessed Assessed -Color (Iza-wound Skin Appearance) Assessed Assessed Assessed -Temperature (Iza-wound Skin No Abnormality No Abnormality No Abnormality Appearance) (Pt Warm) (Pt Warm) (Pt Warm) -Tenderness on Palpation (Iza-wound No No No Skin Appearance) -Ulcer Cleansing Rinsed/ Rinsed/ Soap and Water Irrigated with Irrigated with Saline Saline -Foul Odor after Cleansing No No -Anesthetic Used 5% Lidocaine 5% Lidocaine 5% Lidocaine Gel Gel Gel 11/16/23 11:15 Wound Center Nurse 1 #1 MID BACK -Current Size (cm) - Length 0.1 -Current Size (cm) - Width 1.5 -Current Size (cm) - Depth 1.2 -Total Square Cm 0.15 -Date of Last Picture (Recall this field) -Photo Taken -Undermining/Tunneling -Circular Undermining -Classification - Thickness -Exudate Amt Medium -Exudate Type Serosanguineous -Wound Margin Distinct, Outline Attached -Granulation Amt Large (67-100%) -Granulation Quality Red -Texture (Iza-wound Skin Appearance) Assessed -Moisture (Iza-wound Skin Appearance) Assessed -Color (Iza-wound Skin Appearance) Assessed -Temperature (Iza-wound Skin No Abnormality Appearance) (Pt Warm) -Tenderness on Palpation (Iza-wound No Skin Appearance) -Ulcer Cleansing Rinsed/ Irrigated with Saline -Foul Odor after Cleansing No -Anesthetic Used 5% Lidocaine Gel WC - Nurse 2 - General Ulcer CM Notes Start: 10/26/23 11:01 Freq: Status: Active Protocol: Activity Type Activity Date Activity User E-sign Co-sign Detail Recorded Client Recorded Date Recorded By Document 10/26/23 11:23 DS [id number] 10/26/23 11:28 DS Document 11/02/23 11:40 [id number] 11/02/23 11:43 GM Document 11/09/23 11:36 GM [id number] 11/09/23 11:39 GM Document 11/16/23 11:24 [id number] 11/16/23 11:33 10/26/23 11/02/23 11/09/23 11:23 11:40 11:36 Wound Center Nurse 2 #1 MID BACK -Time 11:24 11:40 11:36 -Correct Patient Yes Yes Yes -Correct Side, Site, Position Yes Yes Yes -Correct Procedure Yes Yes Yes -Procedure Performed Yes Yes Yes -Type of Procedure Debridement Debridement Debridement -Clinical Debridement Subcutaneous Subcutaneous Subcutaneous -Tissue Removed Subcutaneous Subcutaneous Subcutaneous -Post Debridement (cm) - Length 0.1 0.1 0.1 -Post Debridement (cm) - Width 0.7 0.8 0.6 -Post Debridement (cm) - Depth 1.3 1.3 1.0 -Total Square (Post) (cm) 0.07 0.08 0.06 -Area of Debridement (cm) - Length 0.1 0.1 0.1 -Area of Debridement (cm) - Width 0.7 0.8 0.6 -Total Square (Area) (cm) 0.07 0.08 0.06 -Tunneling No No No -Undermining/Tunneling No No No -Circular Undermining No No No -Wound/Ulcer Outcome Not Healed Not Healed Not Healed -Ulcer Cleansing Rinsed/ Rinsed/ Rinsed/ Irrigated with Irrigated with Irrigated with Saline Saline Saline -Foul Odor after Cleansing No No -Bioengineered Tissue No No No -Bleeding Controlled with Pressure Pressure Pressure -Treatment Response Procedure Procedure Procedure Tolerated Well Tolerated Well Tolerated Well -Debridement - Subq, 1st 20sq cm Yes Yes Yes Pain Scale: 0-10 Numeric Is Patient Pain Free? Yes Yes Yes 11/16/23 11:24 Wound Center Nurse 2 #1 MID BACK -Time 11:25 -Correct Patient Yes -Correct Side, Site, Position Yes -Correct Procedure Yes -Procedure Performed Yes -Type of Procedure Debridement -Clinical Debridement Subcutaneous -Tissue Removed Subcutaneous -Post Debridement (cm) - Length 0.1 -Post Debridement (cm) - Width 0.8 -Post Debridement (cm) - Depth 1.5 -Total Square (Post) (cm) 0.08 -Area of Debridement (cm) - Length 0.1 -Area of Debridement (cm) - Width 0.8 -Total Square (Area) (cm) 0.08 -Tunneling No -Undermining/Tunneling No -Circular Undermining No -Wound/Ulcer Outcome Not Healed -Ulcer Cleansing Rinsed/ Irrigated with Saline -Foul Odor after Cleansing No -Bioengineered Tissue -Bleeding Controlled with Pressure -Treatment Response Procedure Tolerated Well -Debridement - Subq, 1st 20sq cm Yes Pain Scale: 0-10 Numeric Is Patient Pain Free? Yes - Nurse 3 - General Ulcer D/C NN Start: 10/26/23 11:01 Freq: Status: Active Protocol: Activity Type Activity Date Activity User E-sign Co-sign Detail Recorded Client Recorded Date Recorded By Document 10/26/23 11:46 [id number] 10/26/23 11:47 CP Document 11/02/23 11:57 KW [id number] 11/02/23 11:58 KW Document 11/09/23 11:46 [id number] 11/09/23 11:46 KW 10/26/23 11/02/23 11/09/23 11:46 11:57 11:46 Wound Care Center Nurse 3 #1 MID BACK -Ulcer Cleansing Rinsed/ Irrigated with Saline -Primary Dressing Applied Aquacel Extra Aquacel Extra -Other Dressing iodoform -Primary Dressing Covered/Secured with Dry Gauze, Dry Gauze, Dry Gauze, Secured with Secured with Secured with Tape Tape Tape -Aquacel Extra 1 1 Treatment Response Procedure Tolerated Well Pain Scale: 0-10 Numeric Is Patient Pain Free? Yes Yes Yes - Visit Discharge Discharge Condition Stable Stable Ambulatory Status Ambulatory,Cane Ambulatory,Cane Transportation Private Auto Private Auto Clinical Summary of Care Provided Yes Assessment/Plan Assessment/Plan (1) Nonhealing surgical wound: CODE(S): T81.89XA - Other complications of procedures, not elsewhere classified, initial encounter (2) Type 2 diabetes mellitus: CODE(S): E11.9 - Type 2 diabetes mellitus without complications (3) Obesity: CODE(S): E66.9 - Obesity, unspecified (4) Tobacco abuse: CODE(S): Z72.0 - Tobacco use PLAN: Plan Debridement done as documented above, procedure was well-tolerated. Some worsening noted this week, as above they also report increased drainage. Cultures taken, will review. Continue Aquacel extra, change daily to twice daily or more if needed. Dietary/lifestyle modifications and smoking cessation again discussed, he voiced understanding. Repeat A1c is due next month, he was advised that he follow-up with his primary care physician. Continue optimal protein intake. He voiced understanding. His questions were answered and he was advised to call with any further questions or concerns. Follow-up in 2 weeks however, they were advised to call if he notes worsening or any concerns, they voiced understanding. This note was generated with [employer] dictation software. It may contain incorrect words, spelling, and punctuation that were not noted in checking the note before signing.
== END 2023-11-20 23:59 | disposition home or self-care (01) ==
LOC: WC 11:15
PROVIDERS: PCP Nurse Practitioner Adult Health; Referring Provider Nurse Practitioner Adult Health; Visit Provider Internal Medicine
DX: T81.89XA Other complications of procedures, not elsewhere classified, initial encounter (principal); E11.9 Type 2 diabetes mellitus without complications; Y83.8 Other surgical procedures as the cause of abnormal reaction of the patient, or of later complication, without mention of misadventure at the time of the procedure; E66.9 Obesity, unspecified; Z79.899 Other long term (current) drug therapy; Z87.891 Personal history of nicotine dependence
CPT/HCPCS: 11042; 87070; 87075; 87077; 87186; 87205

== ENCOUNTER 2023-12-21 11:00 | Outpatient (RCR) | payer MEDICAID, SELFPAY ==
[2023-11-21 00:39] VITALS: BP 190/87; PULSE 99; RESP 18; TEMP 37
[2023-12-07 11:48] VITALS: BP 161/91; PULSE 95; RESP 16; TEMP 36.7
--- NOTE | 2023-12-07 12:19 | PN.PCM_ITS ---
History of Present Illness Date of Service: 12/07/23 Chief Complaint: Nonhealing surgical wound History of Wound: Mr. Gusman is a 48-year-old referred to the wound center by his PCP due to nonhealing surgical wound. He had presented to the emergency room/hospital following a 2-week period of feeling unwell in August and subsequently went on to have surgery due to necrotizing fasciitis. Had a wound VAC post-surgery. He states that surgery was uneventful and wound healing process was also largely really good save for an area that has not closed. He has had a nurse come in for dressing. Reports a history of borderline diabetes however, his last A1c was at 6.6. History of tobacco use. He states that his appetite is good and he feels well otherwise. Progress of Wound: No acute concerns at this time. He states that they have been doing dressing changes as recommended. Some improvement noted. Objective Data Objective Data Vital Signs: Vital Signs Temp Pulse Resp BP O2 Del Method 98.0 F 95 16 161/91 H Room Air 12/07/23 11:48 12/07/23 11:48 12/07/23 11:48 12/07/23 11:48 12/07/23 11:48 Oxygen Delivery Method Room Air Charges/Coding Procedures Integumentary 111xxx-113xx: 14343 Veronique subq tissue 20 sq cm/< Physical Exam Const alert, oriented x3 and no apparent distress General Appearance: cooperative and comfortable HEENT normocephalic and head/scalp atraumatic Head and Scalp: normal to inspection Eyes EOMs intact bilaterally General Eye: normal appearance of both eyes Neck full ROM and supple General: normal visual inspection Resp normal respiratory effort Effort and Inspection: able to speak in complete sentences Skin Wounds: wounds noted size Size: See clinical note, margins well approximated, no odor and open Neuro oriented x3, CN's II-XII intact bilaterally, moves all extremities and no focal motor deficits Psych mental status grossly normal, thought process normal, cooperative, affect normal and speech normal Debridement Note Debridement Note Wound debrided: Back Type of Debridement: Excisional debridement Anesthesia Used: 5% Lidocaine Gel Depth: Down to and including healthy tissue and in the subcutaneous layer Percentage of wound debrided: 100 Instrument Used: 3mm curette Tissue Removed: Slough and devitalized tissue Severity: Fat Layer Exposed Amount of bleeding with debridement: Mild Bleeding Controlled with: Pressure Patient tolerated procedure: Patient tolerated procedure well Post-Debridement Measurements and Additional Note: Post-Debridement Measurements/Treatment - Nurse 1 - General Ulcer Assessment Start: 12/07/23 11:47 Freq: Status: Active Protocol: MARGARITO Activity Type Activity Date Activity User E-sign Co-sign Detail Recorded Client Recorded Date Recorded By Document 12/07/23 11:48 KW [id number] 12/07/23 11:55 KW 12/07/23 11:48 - Today's Visit Information Type of service Follow-up Visit (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 Any new allergies or adverse reactions No Had a fall/change in ADL's that may No increase risk of falls Signs or symptoms of abuse and/or No neglect since last visit Have you been in the hospital since your No last visit? Has dressing in place as prescribed Yes Has compression in place as prescribed N/A Has offloadiing in place as prescribed N/A Experienced any changes in pain level or No management Left Footwear Regular Shoe Right Footwear Regular Shoe Pain Scale: 0-10 Numeric Is Patient Pain Free? Yes [facility] Nurse 1 - General Ulcer Measurement Start: 12/07/23 11:47 Freq: Status: Active Protocol: Activity Type Activity Date Activity User E-sign Co-sign Detail Recorded Client Recorded Date Recorded By Document 12/07/23 11:48 KW [id number] 12/07/23 11:55 KW 12/07/23 11:48 Wound Center Nurse 1 #1 MID BACK -Current Size (cm) - Length 0.1 -Current Size (cm) - Width 0.5 -Current Size (cm) - Depth 0.4 -Total Square Cm 0.05 -Date of Last Picture (Recall this 12/07/23 field) -Exudate Amt None Present -Wound Margin Distinct, Outline Attached -Texture (Iza-wound Skin Appearance) Assessed -Moisture (Iza-wound Skin Appearance) Assessed -Color (Iza-wound Skin Appearance) Assessed -Temperature (Iza-wound Skin No Abnormality Appearance) (Pt Warm) -Tenderness on Palpation (Iza-wound No Skin Appearance) -Ulcer Cleansing Rinsed/ Irrigated with Saline -Foul Odor after Cleansing No -Anesthetic Used 5% Lidocaine Gel WC - Nurse 2 - General Ulcer CM Notes Start: 12/07/23 11:47 Freq: Status: Active Protocol: Activity Type Activity Date Activity User E-sign Co-sign Detail Recorded Client Recorded Date Recorded By Document 12/07/23 11:58 [id number] 12/07/23 12:01 12/07/23 11:58 Wound Center Nurse 2 -Time 11:58 -Correct Patient Yes -Correct Side, Site, Position Yes -Correct Procedure Yes -Procedure Performed Yes -Type of Procedure Debridement -Clinical Debridement Subcutaneous -Tissue Removed Subcutaneous -Post Debridement (cm) - Length 0.1 -Post Debridement (cm) - Width 0.7 -Post Debridement (cm) - Depth 1.0 -Total Square (Post) (cm) 0.07 -Area of Debridement (cm) - Length 0.1 -Area of Debridement (cm) - Width 0.7 -Total Square (Area) (cm) 0.07 -Tunneling No -Undermining/Tunneling No -Circular Undermining No -Wound/Ulcer Outcome Not Healed -Ulcer Cleansing Rinsed/ Irrigated with Saline -Foul Odor after Cleansing No -Bioengineered Tissue No -Bleeding Controlled with Pressure -Treatment Response Procedure Tolerated Well -Debridement - Subq, 1st 20sq cm Yes Pain Scale: 0-10 Numeric Is Patient Pain Free? Yes - Nurse 3 - General Ulcer D/C NN Start: 12/07/23 11:47 Freq: Status: Active Protocol: Activity Type Activity Date Activity User E-sign Co-sign Detail Recorded Client Recorded Date Recorded By Document 12/07/23 12:10 KW [id number] 12/07/23 12:10 12/07/23 12:10 Wound Care Center Nurse 3 #1 MID BACK -Primary Dressing Applied Aquacel Extra -Primary Dressing Covered/Secured with Dry Gauze, Secured with Tape -Aquacel Extra 1 Pain Scale: 0-10 Numeric Is Patient Pain Free? Yes Assessment/Plan Assessment/Plan (1) Nonhealing surgical wound: CODE(S): T81.89XA - Other complications of procedures, not elsewhere classified, initial encounter (2) Type 2 diabetes mellitus: CODE(S): E11.9 - Type 2 diabetes mellitus without complications (3) Obesity: CODE(S): E66.9 - Obesity, unspecified (4) Tobacco abuse: CODE(S): Z72.0 - Tobacco use PLAN: Plan Debridement done as documented above, procedure was well-tolerated. No new concerns reported today. Improvement noted. Continue Aquacel extra daily to twice daily depending on drainage. Cover with foam dressing. Continue optimal protein intake and diabetes control as previously discussed. He voiced understanding. His questions were answered and he was advised to call with any further questions or concerns. Follow-up in a week or sooner if needed. This note was generated with [employer] dictation software. It may contain incorrect words, spelling, and punctuation that were not noted in checking the note before signing.
--- NOTE | 2023-12-11 13:21 | WC ---
PHOTO 12/07/23 MID BACK
[2023-12-14 11:12] VITALS: BP 166/93; PULSE 68; RESP 18; TEMP 37.2
--- NOTE | 2023-12-14 12:49 | PN.PCM_ITS ---
History of Present Illness Date of Service: 12/14/23 Chief Complaint: Nonhealing surgical wound History of Wound: Mr. Gusman is a 48-year-old referred to the wound center by his PCP due to nonhealing surgical wound. He had presented to the emergency room/hospital following a 2-week period of feeling unwell in August and subsequently went on to have surgery due to necrotizing fasciitis. Had a wound VAC post-surgery. He states that surgery was uneventful and wound healing process was also largely really good save for an area that has not closed. He has had a nurse come in for dressing. Reports a history of borderline diabetes however, his last A1c was at 6.6. History of tobacco use. He states that his appetite is good and he feels well otherwise. Progress of Wound: No new concerns. Improving. Objective Data Objective Data Vital Signs: Vital Signs Temp Pulse Resp BP O2 Del Method 98.9 F 68 18 166/93 H Nasal Cannula 12/14/23 11:12 12/14/23 11:12 12/14/23 11:12 12/14/23 11:12 12/14/23 11:12 Oxygen Delivery Method Nasal Cannula Charges/Coding Procedures Integumentary 111xxx-113xx: 15701 Veronique subq tissue 20 sq cm/< Physical Exam Const alert, oriented x3 and no apparent distress General Appearance: cooperative and comfortable HEENT normocephalic and head/scalp atraumatic Head and Scalp: normal to inspection Eyes EOMs intact bilaterally General Eye: normal appearance of both eyes Neck full ROM and supple General: normal visual inspection Resp normal respiratory effort Effort and Inspection: able to speak in complete sentences Skin Wounds: wounds noted size Size: See clinical note, margins well approximated, no odor and open Neuro oriented x3, CN's II-XII intact bilaterally, moves all extremities and no focal motor deficits Psych mental status grossly normal, thought process normal, cooperative, affect normal and speech normal Debridement Note Debridement Note Wound debrided: Back Type of Debridement: Excisional debridement Anesthesia Used: 4% Lidocaine Solution Depth: Down to and including healthy tissue and in the subcutaneous layer Percentage of wound debrided: 100 Instrument Used: 3mm curette Tissue Removed: Slough and devitalized tissue Severity: Fat Layer Exposed Amount of bleeding with debridement: Mild Bleeding Controlled with: Pressure Patient tolerated procedure: Patient tolerated procedure well Post-Debridement Measurements and Additional Note: Post-Debridement Measurements/Treatment - Nurse 1 - General Ulcer Assessment Start: 12/07/23 11:47 Freq: Status: Active Protocol: MARGARITO Activity Type Activity Date Activity User E-sign Co-sign Detail Recorded Client Recorded Date Recorded By Document 12/07/23 11:48 KW [id number] 12/07/23 11:55 KW Document 12/14/23 11:12 DS [id number] 12/14/23 11:13 DS 12/07/23 12/14/23 11:48 11:12 - Today's Visit Information Type of service Follow-up Visit Follow-up Visit (Physician/HYDROELECTRIC PLANT ELECTRICIAN (Physician/HYDROELECTRIC PLANT ELECTRICIAN ) ) Arrival Mode Ambulatory,Cane Ambulatory,Cane Patient Identification Verified (Name & Yes Yes ) Safety Precautions Fall Prevention Vital Signs Temperature (97.8 F-99.1 F) 98.0 F 98.9 F Temperature Source Temporal Temporal Pulse Rate (60-100) 95 68 Pulse Location Monitor Monitor Respiratory Rate (12-18) 16 18 Respiratory rate source Observation Observation Oxygen Delivery Method Room Air Nasal Cannula Blood Pressure (90/60-120/80) 161/91 H 166/93 H Blood Pressure Mean (mm Hg) 114 117 Source Monitor Monitor Position Sitting Sitting Blood Pressure Location Right Arm Left Arm History Since Last Visit- (Skip if this is Patient's initial visit) Have you changed medications since your No No last visit? Any new allergies or adverse reactions No No Had a fall/change in ADL's that may No No increase risk of falls Signs or symptoms of abuse and/or No No neglect since last visit Have you been in the hospital since your No No last visit? Has dressing in place as prescribed Yes Yes Has compression in place as prescribed N/A N/A Has offloadiing in place as prescribed N/A N/A Experienced any changes in pain level or No No management Left Footwear Regular Shoe Regular Shoe Right Footwear Regular Shoe Regular Shoe Pain Scale: 0-10 Numeric Is Patient Pain Free? Yes Yes - Nurse 1 - General Ulcer Measurement Start: 12/07/23 11:47 Freq: Status: Active Protocol: Activity Type Activity Date Activity User E-sign Co-sign Detail Recorded Client Recorded Date Recorded By Document 12/07/23 11:48 KW [id number] 12/07/23 11:55 KW Document 12/14/23 11:13 DS [id number] 12/14/23 11:21 DS 12/07/23 12/14/23 11:48 11:13 Wound Center Nurse 1 #1 MID BACK -Current Size (cm) - Length 0.1 0.1 -Current Size (cm) - Width 0.5 0.8 -Current Size (cm) - Depth 0.4 0.8 -Total Square Cm 0.05 0.08 -Date of Last Picture (Recall this 12/07/23 field) -Photo Taken No -Tunneling No -Undermining/Tunneling No -Circular Undermining No -Exudate Amt None Present -Wound Margin Distinct, Distinct, Outline Outline Attached Attached -Texture (Iza-wound Skin Appearance) Assessed Assessed -Moisture (Iza-wound Skin Appearance) Assessed Assessed -Color (Iza-wound Skin Appearance) Assessed Assessed -Temperature (Iza-wound Skin No Abnormality No Abnormality Appearance) (Pt Warm) (Pt Warm) -Tenderness on Palpation (Iza-wound No No Skin Appearance) -Ulcer Cleansing Rinsed/ Soap and Water Irrigated with Saline -Foul Odor after Cleansing No -Anesthetic Used 5% Lidocaine 5% Lidocaine Gel Gel WC - Nurse 2 - General Ulcer CM Notes Start: 12/07/23 11:47 Freq: Status: Active Protocol: Activity Type Activity Date Activity User E-sign Co-sign Detail Recorded Client Recorded Date Recorded By Document 12/07/23 11:58 [id number] 12/07/23 12:01 Document 12/14/23 11:53 [id number] 12/14/23 11:55 12/07/23 12/14/23 11:58 11:53 Wound Center Nurse 2 #1 MID BACK -Time 11:58 11:53 -Correct Patient Yes Yes -Correct Side, Site, Position Yes Yes -Correct Procedure Yes Yes -Procedure Performed Yes Yes -Type of Procedure Debridement Debridement -Clinical Debridement Subcutaneous Subcutaneous -Tissue Removed Subcutaneous Subcutaneous -Post Debridement (cm) - Length 0.1 0.1 -Post Debridement (cm) - Width 0.7 0.9 -Post Debridement (cm) - Depth 1.0 0.9 -Total Square (Post) (cm) 0.07 0.09 -Area of Debridement (cm) - Length 0.1 0.1 -Area of Debridement (cm) - Width 0.7 0.9 -Total Square (Area) (cm) 0.07 0.09 -Tunneling No No -Undermining/Tunneling No No -Circular Undermining No No -Wound/Ulcer Outcome Not Healed Not Healed -Ulcer Cleansing Rinsed/ Rinsed/ Irrigated with Irrigated with Saline Saline -Foul Odor after Cleansing No No -Bioengineered Tissue No No -Bleeding Controlled with Pressure Pressure -Treatment Response Procedure Procedure Tolerated Well Tolerated Well -Debridement - Subq, 1st 20sq cm Yes Yes Pain Scale: 0-10 Numeric Is Patient Pain Free? Yes Yes WC - Nurse 3 - General Ulcer D/C NN Start: 12/07/23 11:47 Freq: Status: Active Protocol: Activity Type Activity Date Activity User E-sign Co-sign Detail Recorded Client Recorded Date Recorded By Document 12/07/23 12:10 KW [id number] 12/07/23 12:10 KW Document 12/14/23 12:03 KW [id number] 12/14/23 12:04 KW 12/07/23 12/14/23 12:10 12:03 Wound Care Center Nurse 3 #1 MID BACK -Primary Dressing Applied Aquacel Extra Aquacel Extra -Primary Dressing Covered/Secured with Dry Gauze, Dry Gauze, Secured with Secured with Tape Tape -Aquacel Extra 1 1 Pain Scale: 0-10 Numeric Is Patient Pain Free? Yes Yes Assessment/Plan Assessment/Plan (1) Nonhealing surgical wound: CODE(S): T81.89XA - Other complications of procedures, not elsewhere classified, initial encounter (2) Type 2 diabetes mellitus: CODE(S): E11.9 - Type 2 diabetes mellitus without complications (3) Obesity: CODE(S): E66.9 - Obesity, unspecified (4) Tobacco abuse: CODE(S): Z72.0 - Tobacco use PLAN: Plan Debridement done as documented above, procedure was well-tolerated. Improving depth, wound base now visualized. Good granulation tissue. Continue Aquacel extra, change daily to twice daily as needed. Cover with foam dressing. Continue optimal diabetes control and other dietary changes as previously discussed. Smoking cessation again discussed. He was advised to call with any questions or concerns. Follow-up in a week or sooner if needed. This note was generated with [employer] software. It may contain incorrect words, spelling, and punctuation that were not noted in checking the note before signing.
[2023-12-21 10:56] VITALS: BP 167/87; PULSE 66; RESP 18; TEMP 36.1
--- NOTE | 2023-12-21 12:08 | PCM.WC.PN ---
History of Present Illness Date of Service: 12/21/23 Chief Complaint: Nonhealing surgical wound History of Wound: Mr. Gusman is a 48-year-old referred to the wound center by his PCP due to nonhealing surgical wound. He had presented to the emergency room/hospital following a 2-week period of feeling unwell in August and subsequently went on to have surgery due to necrotizing fasciitis. Had a wound VAC post-surgery. He states that surgery was uneventful and wound healing process was also largely really good save for an area that has not closed. He has had a nurse come in for dressing. Reports a history of borderline diabetes however, his last A1c was at 6.6. History of tobacco use. He states that his appetite is good and he feels well otherwise. Progress of Wound: No new concerns. Some improvement noted since his last visit. Objective Data Objective Data Vital Signs: Vital Signs Temp Pulse Resp BP O2 Del Method 97 F L 66 18 167/87 H Room Air 12/21/23 10:56 12/21/23 10:56 12/21/23 10:56 12/21/23 10:56 12/21/23 10:56 Oxygen Delivery Method Room Air Charges/Coding Procedures Integumentary 111xxx-113xx: 66141 Veronique subq tissue 20 sq cm/< Physical Exam Const alert, oriented x3 and no apparent distress General Appearance: cooperative and comfortable HEENT normocephalic and head/scalp atraumatic Head and Scalp: normal to inspection Eyes EOMs intact bilaterally General Eye: normal appearance of both eyes Neck full ROM and supple General: normal visual inspection Resp normal respiratory effort Effort and Inspection: able to speak in complete sentences Skin Wounds: wounds noted size Size: See clinical note, bed granulating well, margins well approximated, no odor and open Neuro oriented x3, CN's II-XII intact bilaterally, moves all extremities and no focal motor deficits Psych mental status grossly normal, thought process normal, cooperative, affect normal and speech normal Debridement Note Debridement Note Wound debrided: Back Type of Debridement: Excisional debridement Anesthesia Used: 4% Lidocaine Solution Depth: Down to and including healthy tissue and in the subcutaneous layer Percentage of wound debrided: 100 Instrument Used: 3mm curette Tissue Removed: Slough and devitalized tissue Severity: Fat Layer Exposed Amount of bleeding with debridement: Mild Bleeding Controlled with: Pressure Patient tolerated procedure: Patient tolerated procedure well Post-Debridement Measurements and Additional Note: Post-Debridement Measurements/Treatment WC - Nurse 1 - General Ulcer Assessment Start: 12/07/23 11:47 Freq: Status: Active Protocol: MARGARITO Activity Type Activity Date Activity User E-sign Co-sign Detail Recorded Client Recorded Date Recorded By Document 12/07/23 11:48 KW [id number] 12/07/23 11:55 KW Document 12/14/23 11:12 DS [id number] 12/14/23 11:13 DS Document 12/21/23 10:56 MT [id number] 12/21/23 11:04 MT 12/07/23 12/14/23 12/21/23 11:48 11:12 10:56 WC - Today's Visit Information Type of service Follow-up Visit Follow-up Visit Follow-up Visit (Physician/[employer] SAL[employer] CONSULTANT (Physician/[employer] SALES CONSULTANT (Physician/[employer] SALES CONSULTANT ) ) ) Arrival Mode Ambulatory,Cane Ambulatory,Cane Ambulatory Accompanied by MOM Patient Identification Verified (Name & Yes Yes Yes ) Safety Precautions Fall Prevention Fall Prevention Vital Signs Temperature (97.8 F-99.1 F) 98.0 F 98.9 F 97 F L Temperature Source Temporal Temporal Temporal Pulse Rate (60-100) 95 68 66 Pulse Location Monitor Monitor Monitor Respiratory Rate (12-18) 16 18 18 Respiratory rate source Observation Observation Observation Oxygen Delivery Method Room Air Nasal Cannula Room Air Blood Pressure (90/60-120/80) 161/91 H 166/93 H 167/87 H Blood Pressure Mean (mm Hg) 114 117 113 Source Monitor Monitor Monitor Position Sitting Sitting Sitting Blood Pressure Location Right Arm Left Arm Left Arm History Since Last Visit- (Skip if this is Patient's initial visit) Have you changed medications since your No No last visit? Any new allergies or adverse reactions No No Had a fall/change in ADL's that may No No increase risk of falls Signs or symptoms of abuse and/or No No neglect since last visit Have you been in the hospital since your No No last visit? Has dressing in place as prescribed Yes Yes Yes Has compression in place as prescribed N/A N/A Yes Has offloadiing in place as prescribed N/A N/A Yes Experienced any changes in pain level or No No Yes management Left Footwear Regular Shoe Regular Shoe Regular Shoe Right Footwear Regular Shoe Regular Shoe Regular Shoe Pain Scale: 0-10 Numeric Is Patient Pain Free? Yes Yes Yes WC - Nurse 1 - General Ulcer Measurement Start: 12/07/23 11:47 Freq: Status: Active Protocol: Activity Type Activity Date Activity User E-sign Co-sign Detail Recorded Client Recorded Date Recorded By Document 12/07/23 11:48 KW [id number] 12/07/23 11:55 KW Document 12/14/23 11:13 DS [id number] 12/14/23 11:21 DS Document 12/21/23 10:56 MT [id number] 12/21/23 11:04 MT 12/07/23 12/14/23 12/21/23 11:48 11:13 10:56 Wound Center Nurse 1 #1 MID BACK -Current Size (cm) - Length 0.1 0.1 0.4 -Current Size (cm) - Width 0.5 0.8 0.8 -Current Size (cm) - Depth 0.4 0.8 0.3 -Total Square Cm 0.05 0.08 0.32 -Date of Last Picture (Recall this 12/07/23 field) -Photo Taken No No -Tunneling No No -Undermining/Tunneling No No -Circular Undermining No No -Exudate Amt None Present -Wound Margin Distinct, Distinct, Thickened Outline Outline Attached Attached -Granulation Amt Large (67-100%) -Granulation Quality Pale -Necrosis Amt Small (1-33%) -Necrotic Tissue Type Adherent Slough -Texture (Iza-wound Skin Appearance) Assessed Assessed Assessed -Moisture (Iza-wound Skin Appearance) Assessed Assessed Assessed -Color (Iza-wound Skin Appearance) Assessed Assessed Assessed -Temperature (Iza-wound Skin No Abnormality No Abnormality No Abnormality Appearance) (Pt Warm) (Pt Warm) (Pt Warm) -Tenderness on Palpation (Iza-wound No No No Skin Appearance) -Ulcer Cleansing Rinsed/ Soap and Water Rinsed/ Irrigated with Irrigated with Saline Saline -Foul Odor after Cleansing No No -Anesthetic Used 5% Lidocaine 5% Lidocaine 4% Lidocaine Gel Gel Solution Lower Limb Edema Present NA WC - Nurse 2 - General Ulcer CM Notes Start: 12/07/23 11:47 Freq: Status: Active Protocol: Activity Type Activity Date Activity User E-sign Co-sign Detail Recorded Client Recorded Date Recorded By Document 12/07/23 11:58 GM [id number] 12/07/23 12:01 Document 12/14/23 11:53 [id number] 12/14/23 11:55 Document 12/21/23 11:23 [id number] 12/21/23 11:26 12/07/23 12/14/23 12/21/23 11:58 11:53 11:23 Wound Center Nurse 2 #1 MID BACK -Time 11:58 11:53 11:23 -Correct Patient Yes Yes Yes -Correct Side, Site, Position Yes Yes Yes -Correct Procedure Yes Yes Yes -Procedure Performed Yes Yes Yes -Type of Procedure Debridement Debridement Debridement -Clinical Debridement Subcutaneous Subcutaneous Subcutaneous -Tissue Removed Subcutaneous Subcutaneous Subcutaneous -Post Debridement (cm) - Length 0.1 0.1 0.1 -Post Debridement (cm) - Width 0.7 0.9 0.6 -Post Debridement (cm) - Depth 1.0 0.9 0.3 -Total Square (Post) (cm) 0.07 0.09 0.06 -Area of Debridement (cm) - Length 0.1 0.1 1.0 -Area of Debridement (cm) - Width 0.7 0.9 0.6 -Total Square (Area) (cm) 0.07 0.09 0.60 -Tunneling No No No -Undermining/Tunneling No No No -Circular Undermining No No No -Wound/Ulcer Outcome Not Healed Not Healed Not Healed -Ulcer Cleansing Rinsed/ Rinsed/ Rinsed/ Irrigated with Irrigated with Irrigated with Saline Saline Saline -Foul Odor after Cleansing No No No -Bioengineered Tissue No No No -Bleeding Controlled with Pressure Pressure Pressure -Treatment Response Procedure Procedure Procedure Tolerated Well Tolerated Well Tolerated Well -Debridement - Subq, 1st 20sq cm Yes Yes Yes Pain Scale: 0-10 Numeric Is Patient Pain Free? Yes Yes Yes WC - Nurse 3 - General Ulcer D/C NN Start: 12/07/23 11:47 Freq: Status: Active Protocol: Activity Type Activity Date Activity User E-sign Co-sign Detail Recorded Client Recorded Date Recorded By Document 12/07/23 12:10 KW [id number] 12/07/23 12:10 KW Document 12/14/23 12:03 KW [id number] 12/14/23 12:04 KW Document 12/21/23 11:31 KW [id number] 12/21/23 11:31 KW 12/07/23 12/14/23 12/21/23 12:10 12:03 11:31 Wound Care Center Nurse 3 #1 MID BACK -Primary Dressing Applied Aquacel Extra Aquacel Extra Aquacel AG 4x4, Mepilex Border -Primary Dressing Covered/Secured with Dry Gauze, Dry Gauze, Secured with Secured with Tape Tape -Aquacel Extra 1 1 -Aquacel AG 4x4 1 -Mepilex Border 1 Pain Scale: 0-10 Numeric Is Patient Pain Free? Yes Yes Yes Assessment/Plan Assessment/Plan (1) Nonhealing surgical wound: CODE(S): T81.89XA - Other complications of procedures, not elsewhere classified, initial encounter (2) Type 2 diabetes mellitus: CODE(S): E11.9 - Type 2 diabetes mellitus without complications (3) Obesity: CODE(S): E66.9 - Obesity, unspecified (4) Tobacco abuse: CODE(S): Z72.0 - Tobacco use PLAN: Plan Debridement done as documented above, procedure was well-tolerated. Continues to show good improvement. They state that it is becoming increasingly difficult to pack. Continue Aquacel extra, change daily to twice daily as needed. Cover with foam dressing. Continue optimal diabetes control and other dietary changes as previously discussed. Smoking cessation again discussed. He was advised to call with any questions or concerns. Follow-up in a week or sooner if needed. This note was generated with [employer] software. It may contain incorrect words, spelling, and punctuation that were not noted in checking the note before signing.
== END 2023-12-21 23:59 | disposition home or self-care (01) ==
LOC: WC 11:00
PROVIDERS: PCP Nurse Practitioner Adult Health; Referring Provider Nurse Practitioner Adult Health; Visit Provider Internal Medicine
DX: T81.89XA Other complications of procedures, not elsewhere classified, initial encounter (principal); E11.9 Type 2 diabetes mellitus without complications; Y83.8 Other surgical procedures as the cause of abnormal reaction of the patient, or of later complication, without mention of misadventure at the time of the procedure; E66.9 Obesity, unspecified; Z79.899 Other long term (current) drug therapy
CPT/HCPCS: 11042

== ENCOUNTER 2024-01-11 11:00 | Outpatient (RCR) | payer MEDICAID, SELFPAY ==
[2023-12-22 00:21] VITALS: BP 190/87; PULSE 99; RESP 18; TEMP 37
[2023-12-28 11:12] VITALS: BP 191/88; PULSE 85; RESP 18; TEMP 36.4
--- NOTE | 2023-12-28 12:30 | PN.PCM_ITS ---
History of Present Illness Date of Service: 12/28/23 Chief Complaint: Nonhealing surgical wound History of Wound: Mr. Gusman is a 48-year-old referred to the wound center by his PCP due to nonhealing surgical wound. He had presented to the emergency room/hospital following a 2-week period of feeling unwell in August and subsequently went on to have surgery due to necrotizing fasciitis. Had a wound VAC post-surgery. He states that surgery was uneventful and wound healing process was also largely really good save for an area that has not closed. He has had a nurse come in for dressing. Reports a history of borderline diabetes however, his last A1c was at 6.6. History of tobacco use. He states that his appetite is good and he feels well otherwise. Progress of Wound: Overall, good improvement noted. No new concerns reported by the patient. Minimal area/tunneling noted on examination. Objective Data Objective Data Vital Signs: Vital Signs Temp Pulse Resp BP 97.5 F L 85 18 191/88 H 12/28/23 11:12 12/28/23 11:12 12/28/23 11:12 12/28/23 11:12 Charges/Coding Visit Charges Office Visits / Consults: [id number] OV L3 Est 20min Physical Exam Const alert, oriented x3 and no apparent distress General Appearance: cooperative and comfortable HEENT normocephalic and head/scalp atraumatic Head and Scalp: normal to inspection Eyes EOMs intact bilaterally General Eye: normal appearance of both eyes Neck full ROM and supple General: normal visual inspection Resp normal respiratory effort Effort and Inspection: able to speak in complete sentences Skin Wounds: wounds noted size Size: See clinical note, bed granulating well and with tunneling, margins well approximated, no odor and open Neuro oriented x3, CN's II-XII intact bilaterally, moves all extremities and no focal motor deficits Psych mental status grossly normal, thought process normal, cooperative, affect normal and speech normal Debridement Note Debridement Note No debridement was completed: No debridement was completed today Post-Debridement Measurements and Additional Note: Post-Debridement Measurements/Treatment CRISTOPHER - Nurse 1 - General Ulcer Assessment Start: 12/28/23 11:12 Freq: Status: Active Protocol: CRISTOPHER.HAMIDA Activity Type Activity Date Activity User E-sign Co-sign Detail Recorded Client Recorded Date Recorded By Document 12/28/23 11:12 DESTINI [id number] 12/28/23 11:13 12/28/23 11:12 - Today's Visit Information Type of service Follow-up Visit (Physician/[employer] ) Arrival Mode Ambulatory Transfer Assistance None Patient Identification Verified (Name & Yes ) Patient Requires Transmission-Based No Precautions Vital Signs Temperature (97.8 F-99.1 F) 97.5 F L Temperature Source Temporal Pulse Rate (60-100) 85 Pulse Location Monitor Respiratory Rate (12-18) 18 Respiratory rate source Observation Blood Pressure (90/60-120/80) 191/88 H Blood Pressure Mean (mm Hg) 122 Source Monitor Position Semi-Fowlers Blood Pressure Location Left Arm History Since Last Visit- (Skip if this is Patient's initial visit) Have you changed medications since your No last visit? Any new allergies or adverse reactions No Had a fall/change in ADL's that may No increase risk of falls Signs or symptoms of abuse and/or No neglect since last visit Have you been in the hospital since your No last visit? Has dressing in place as prescribed Yes Has compression in place as prescribed No Has offloadiing in place as prescribed No Experienced any changes in pain level or No management Pain Scale: 0-10 Numeric Is Patient Pain Free? Yes - Nurse 1 - General Ulcer Measurement Start: 12/28/23 11:12 Freq: Status: Active Protocol: Activity Type Activity Date Activity User E-sign Co-sign Detail Recorded Client Recorded Date Recorded By Document 12/28/23 11:12 DESTINI [id number] 12/28/23 11:13 12/28/23 11:12 Wound Center Nurse 1 #1 MID BACK -Combined with other wound No -Current Size (cm) - Length 0.1 -Current Size (cm) - Width 0.4 -Current Size (cm) - Depth 0.3 -Total Square Cm 0.04 -Photo Taken Yes -Tunneling No -Undermining/Tunneling No -Circular Undermining No -Exudate Amt Medium -Exudate Type Serosanguineous -Wound Margin Thickened & Rolled Under -Granulation Amt Medium (34-66%) -Granulation Quality Chapman -Slough/Fibrin Yes -Necrosis Amt Medium (34-66%) -Necrotic Tissue Type Adherent Slough -Structure Exposed N/A -Texture (Iza-wound Skin Appearance) Scarring -Moisture (Iza-wound Skin Appearance) Assessed -Color (Iza-wound Skin Appearance) Assessed -Temperature (Iza-wound Skin No Abnormality Appearance) (Pt Warm) -Tenderness on Palpation (Iza-wound No Skin Appearance) -Ulcer Cleansing Wound Cleanser -Foul Odor after Cleansing No -Anesthetic Used 5% Lidocaine Gel - Nurse 2 - General Ulcer CM Notes Start: 12/28/23 11:12 Freq: Status: Active Protocol: Activity Type Activity Date Activity User E-sign Co-sign Detail Recorded Client Recorded Date Recorded By Document 12/28/23 11:28 [id number] 12/28/23 11:31 12/28/23 11:28 Wound Center Nurse 2 -Time 11:30 -Correct Patient Yes -Correct Side, Site, Position Yes -Wound Comment(s) healed but small tunnel at 11 equals 0.5 Pain Scale: 0-10 Numeric Is Patient Pain Free? Yes - Nurse 3 - General Ulcer D/C NN Start: 12/28/23 11:12 Freq: Status: Active Protocol: Activity Type Activity Date Activity User E-sign Co-sign Detail Recorded Client Recorded Date Recorded By Document 12/28/23 11:40 [id number] 12/28/23 11:41 12/28/23 11:40 Wound Care Center Nurse 3 #1 MID BACK -Primary Dressing Applied Promogran -Primary Dressing Covered/Secured with Dry Gauze, Secured with Tape -Promogran 1 Pain Scale: 0-10 Numeric Is Patient Pain Free? Yes - Visit Discharge Discharge Condition Stable Ambulatory Status Ambulatory,Cane Transportation Private Auto Assessment/Plan Assessment/Plan (1) Nonhealing surgical wound: CODE(S): T81.89XA - Other complications of procedures, not elsewhere classified, initial encounter (2) Type 2 diabetes mellitus: CODE(S): E11.9 - Type 2 diabetes mellitus without complications (3) Obesity: CODE(S): E66.9 - Obesity, unspecified (4) Tobacco abuse: CODE(S): Z72.0 - Tobacco use PLAN: Plan No debridement completed today. Continues to show good improvement however, an area of tunneling probed/noted today. They state that it is becoming increasingly difficult to pack. Switch to moistened Promogran, cover with gauze. Instructions given on how to properly pack the area especially tunneling. Cover with foam dressing. Continue optimal diabetes control and other dietary changes as previously discussed. Smoking cessation again discussed. He was advised to call with any questions or concerns. Follow-up in a week or sooner if needed. This note was generated with [employer] software. It may contain incorrect words, spelling, and punctuation that were not noted in checking the note before signing.
--- NOTE | 2024-01-01 09:19 | WC ---
PHOTO 12/28/23 BACK
[2024-01-04 11:12] VITALS: BP 146/72; PULSE 78; RESP 18; TEMP 36.6
--- NOTE | 2024-01-04 12:05 | PCM.WC.PN ---
History of Present Illness Date of Service: 01/04/24 Chief Complaint: Nonhealing surgical wound History of Wound: Mr. Gusman is a 48-year-old referred to the wound center by his PCP due to nonhealing surgical wound. He had presented to the emergency room/hospital following a 2-week period of feeling unwell in August and subsequently went on to have surgery due to necrotizing fasciitis. Had a wound VAC post-surgery. He states that surgery was uneventful and wound healing process was also largely really good save for an area that has not closed. He has had a nurse come in for dressing. Reports a history of borderline diabetes however, his last A1c was at 6.6. History of tobacco use. He states that his appetite is good and he feels well otherwise. Progress of Wound: No new concerns reported at this time. They report difficulty with packing the ulcer/tunnel. Promogran had been recommended. They state that they have been moistening the Promogran to help with packing however still not able to. Objective Data Objective Data Vital Signs: Vital Signs Temp Pulse Resp BP O2 Del Method 98 F 78 18 146/72 H Room Air 01/04/24 11:12 01/04/24 11:12 01/04/24 11:12 01/04/24 11:12 01/04/24 11:12 Oxygen Delivery Method Room Air Charges/Coding Procedures Integumentary 111xxx-113xx: [id number] Veronique subq tissue 20 sq cm/< Physical Exam Const alert, oriented x3 and no apparent distress General Appearance: cooperative and comfortable HEENT normocephalic and head/scalp atraumatic Head and Scalp: normal to inspection Eyes EOMs intact bilaterally General Eye: normal appearance of both eyes Neck full ROM and supple General: normal visual inspection Resp normal respiratory effort Effort and Inspection: able to speak in complete sentences Skin Wounds: wounds noted size Size: See clinical note, bed granulating well and with tunneling, margins well approximated, no odor and open Neuro oriented x3, CN's II-XII intact bilaterally, moves all extremities and no focal motor deficits Psych mental status grossly normal, thought process normal, cooperative, affect normal and speech normal Debridement Note Debridement Note Wound debrided: Back Type of Debridement: Excisional debridement Anesthesia Used: 4% Lidocaine Solution Depth: Down to and including healthy tissue and in the subcutaneous layer Percentage of wound debrided: 100 Instrument Used: - (1mm) Tissue Removed: Devitalized tissue Severity: Fat Layer Exposed Amount of bleeding with debridement: Mild Patient tolerated procedure: Patient tolerated procedure well Post-Debridement Measurements and Additional Note: Post-Debridement Measurements/Treatment WC - Nurse 1 - General Ulcer Assessment Start: 12/28/23 11:12 Freq: Status: Active Protocol: MARGARITO Activity Type Activity Date Activity User E-sign Co-sign Detail Recorded Client Recorded Date Recorded By Document 12/28/23 11:12 RB [id number] 12/28/23 11:13 RB Document 01/04/24 11:12 MT [id number] 01/04/24 11:16 MT 12/28/23 01/04/24 11:12 11:12 WC - Today's Visit Information Type of service Follow-up Visit Follow-up Visit (Physician/STEWARD/ST[facility]ARDESS WINE (Physician/STEWARD/ST[facility]ARDESS WINE ) ) Arrival Mode Ambulatory Ambulatory,Cane Transfer Assistance None Accompanied by MOM Patient Identification Verified (Name & Yes Yes ) Patient Requires Transmission-Based No Precautions Vital Signs Temperature (97.8 F-99.1 F) 97.5 F L 98 F Temperature Source Temporal Temporal Pulse Rate (60-100) 85 78 Pulse Location Monitor Monitor Respiratory Rate (12-18) 18 18 Respiratory rate source Observation Observation Oxygen Delivery Method Room Air Blood Pressure (90/60-120/80) 191/88 H 146/72 H Blood Pressure Mean (mm Hg) 122 96 Source Monitor Monitor Position Semi-Fowlers Sitting Blood Pressure Location Left Arm Right Arm History Since Last Visit- (Skip if this is Patient's initial visit) Have you changed medications since your No last visit? Any new allergies or adverse reactions No Had a fall/change in ADL's that may No increase risk of falls Signs or symptoms of abuse and/or No neglect since last visit Have you been in the hospital since your No last visit? Has dressing in place as prescribed Yes Yes Has compression in place as prescribed No Yes Has offloadiing in place as prescribed No Yes Experienced any changes in pain level or No Yes management Left Footwear Regular Shoe Right Footwear Regular Shoe Pain Scale: 0-10 Numeric Is Patient Pain Free? Yes Yes CRISTOPHER Hopkins Nurse 1 - General Ulcer Measurement Start: 12/28/23 11:12 Freq: Status: Active Protocol: Activity Type Activity Date Activity User E-sign Co-sign Detail Recorded Client Recorded Date Recorded By Document 12/28/23 11:12 RB [id number] 12/28/23 11:13 RB Document 01/04/24 11:12 MT [id number] 01/04/24 11:16 MT 12/28/23 01/04/24 11:12 11:12 Wound Center Nurse 1 #1 MID BACK -Combined with other wound No -Current Size (cm) - Length 0.1 0.1 -Current Size (cm) - Width 0.4 0.1 -Current Size (cm) - Depth 0.3 0.2 -Total Square Cm 0.04 0.01 -Photo Taken Yes -Epithelialization Large 67-100% -Tunneling No Yes -Tunneling Position (O'clock) 12 -Tunneling Distance (cm) 0.2 -Undermining/Tunneling No No -Circular Undermining No No -Exudate Amt Medium None Present -Exudate Type Serosanguineous -Wound Margin Thickened & Flat & Intact Rolled Under -Granulation Amt Medium (34-66%) Large (67-100%) -Granulation Quality Aldie Pale,Aldie -Slough/Fibrin Yes No -Necrosis Amt Medium (34-66%) -Necrotic Tissue Type Adherent Slough -Structure Exposed N/A -Texture (Iza-wound Skin Appearance) Scarring Assessed -Moisture (Iza-wound Skin Appearance) Assessed Assessed -Color (Iza-wound Skin Appearance) Assessed Assessed -Temperature (Iza-wound Skin No Abnormality No Abnormality Appearance) (Pt Warm) (Pt Warm) -Tenderness on Palpation (Iza-wound No No Skin Appearance) -Ulcer Cleansing Wound Cleanser Soap and Water -Foul Odor after Cleansing No No -Anesthetic Used 5% Lidocaine 5% Lidocaine Gel Gel Lower Limb Edema Present NA WC - Nurse 2 - General Ulcer CM Notes Start: 12/28/23 11:12 Freq: Status: Active Protocol: Activity Type Activity Date Activity User E-sign Co-sign Detail Recorded Client Recorded Date Recorded By Document 12/28/23 11:28 [id number] 12/28/23 11:31 Document 01/04/24 11:37 [id number] 01/04/24 11:43 12/28/23 01/04/24 11:28 11:37 Wound Center Nurse 2 #1 MID BACK -Time 11:30 11:37 -Correct Patient Yes Yes -Correct Side, Site, Position Yes Yes -Correct Procedure Yes -Procedure Performed Yes -Type of Procedure Debridement -Clinical Debridement Subcutaneous -Tissue Removed Subcutaneous -Post Debridement (cm) - Length 0.3 -Post Debridement (cm) - Width 0.1 -Post Debridement (cm) - Depth 1.0 -Total Square (Post) (cm) 0.03 -Area of Debridement (cm) - Length 0.3 -Area of Debridement (cm) - Width 0.1 -Total Square (Area) (cm) 0.03 -Tunneling No -Undermining/Tunneling No -Circular Undermining No -Ulcer Cleansing Rinsed/ Irrigated with Saline -Foul Odor after Cleansing No -Bioengineered Tissue No -Bleeding Controlled with Pressure -Treatment Response Procedure Tolerated Well -Debridement - Subq, 1st 20sq cm Yes -Wound Comment(s) healed but small tunnel at 11 equals 0.5 Pain Scale: 0-10 Numeric Is Patient Pain Free? Yes Yes - Nurse 3 - General Ulcer D/C NN Start: 12/28/23 11:12 Freq: Status: Active Protocol: Activity Type Activity Date Activity User E-sign Co-sign Detail Recorded Client Recorded Date Recorded By Document 12/28/23 11:40 [id number] 12/28/23 11:41 KW Document 01/04/24 12:03 WI [id number] 01/04/24 12:03 WI 12/28/23 01/04/24 11:40 12:03 Wound Care Center Nurse 3 #1 MID BACK -Primary Dressing Applied Promogran Aquacel Rope -Primary Dressing Covered/Secured with Dry Gauze, Dry Gauze, Secured with Secured with Tape Tape -Aquacel Rope 1 -Promogran 1 Pain Scale: 0-10 Numeric Is Patient Pain Free? Yes Yes - Visit Discharge Discharge Condition Stable Stable Ambulatory Status Ambulatory,Cane Ambulatory,Cane Transportation Private Auto Private Auto Medication Reconcilliation completed & No provided to patient/care provider Clinical Summary of Care Provided Yes Assessment/Plan Assessment/Plan (1) Nonhealing surgical wound: CODE(S): T81.89XA - Other complications of procedures, not elsewhere classified, initial encounter (2) Type 2 diabetes mellitus: CODE(S): E11.9 - Type 2 diabetes mellitus without complications (3) Obesity: CODE(S): E66.9 - Obesity, unspecified (4) Tobacco abuse: CODE(S): Z72.0 - Tobacco use PLAN: Plan Debridement done as documented above, procedure was well-tolerated. Still quite difficult to pack the area with moistened Promogran. Will switch to Aquacel rope to see if this is easier/better. Some increase in depth appreciated today. Instructions given on how to properly pack the area especially tunneling. Cover with foam dressing. Continue optimal diabetes control and other dietary changes as previously discussed. Smoking cessation again discussed. He was advised to call with any questions or concerns. Follow-up in a week or sooner if needed. This note was generated with [employer] dictation software. It may contain incorrect words, spelling, and punctuation that were not noted in checking the note before signing.
[2024-01-11 11:12] VITALS: BP 165/79; PULSE 85; RESP 18; TEMP 36.6
--- NOTE | 2024-01-11 12:38 | PN.PCM_ITS ---
History of Present Illness Date of Service: 01/11/24 Chief Complaint: Nonhealing surgical wound History of Wound: Mr. Gusman is a 48-year-old referred to the wound center by his PCP due to nonhealing surgical wound. He had presented to the emergency room/hospital following a 2-week period of feeling unwell in August and subsequently went on to have surgery due to necrotizing fasciitis. Had a wound VAC post-surgery. He states that surgery was uneventful and wound healing process was also largely really good save for an area that has not closed. He has had a nurse come in for dressing. Reports a history of borderline diabetes however, his last A1c was at 6.6. History of tobacco use. He states that his appetite is good and he feels well otherwise. Progress of Wound: No new concerns. Healed. Objective Data Objective Data Vital Signs: Vital Signs Temp Pulse Resp BP O2 Del Method 98 F 85 18 165/79 H Room Air 01/11/24 11:12 01/11/24 11:12 01/11/24 11:12 01/11/24 11:12 01/04/24 11:12 Oxygen Delivery Method Room Air Charges/Coding Visit Charges Office Visits / Consults: [id number] OV L3 Est 20min Physical Exam Const alert, oriented x3 and no apparent distress General Appearance: cooperative and comfortable HEENT normocephalic and head/scalp atraumatic Head and Scalp: normal to inspection Eyes EOMs intact bilaterally General Eye: normal appearance of both eyes Neck full ROM and supple General: normal visual inspection Resp normal respiratory effort Effort and Inspection: able to speak in complete sentences Neuro oriented x3, CN's II-XII intact bilaterally, moves all extremities and no focal motor deficits Psych mental status grossly normal, thought process normal, cooperative, affect normal and speech normal Debridement Note Debridement Note No debridement was completed: No debridement was completed today Post-Debridement Measurements and Additional Note: Post-Debridement Measurements/Treatment WC - Nurse 1 - General Ulcer Assessment Start: 12/28/23 11:12 Freq: Status: Active Protocol: MARGARITO Activity Type Activity Date Activity User E-sign Co-sign Detail Recorded Client Recorded Date Recorded By Document 12/28/23 11:12 RB [id number] 12/28/23 11:13 RB Document 01/04/24 11:12 MT [id number] 01/04/24 11:16 MT Document 01/11/24 11:12 DL [id number] 01/11/24 11:15 DL 12/28/23 01/04/24 01/11/24 11:12 11:12 11:12 WC - Today's Visit Information Type of service Follow-up Visit Follow-up Visit Follow-up Visit (Physician/PLATE STACKER HAND (Physician/PLATE STACKER HAND (Physician/PLATE STACKER HAND ) ) ) Arrival Mode Ambulatory Ambulatory,Cane Ambulatory Transfer Assistance None None Accompanied by MOM Patient Identification Verified (Name & Yes Yes Yes ) Patient Requires Transmission-Based No No Precautions Vital Signs Temperature (97.8 F-99.1 F) 97.5 F L 98 F 98 F Temperature Source Temporal Temporal Temporal Pulse Rate (60-100) 85 78 85 Pulse Location Monitor Monitor Monitor Respiratory Rate (12-18) 18 18 18 Respiratory rate source Observation Observation Observation Oxygen Delivery Method Room Air Blood Pressure (90/60-120/80) 191/88 H 146/72 H 165/79 H Blood Pressure Mean (mm Hg) 122 96 107 Source Monitor Monitor Monitor Position Semi-Fowlers Sitting Blood Pressure Location Left Arm Right Arm History Since Last Visit- (Skip if this is Patient's initial visit) Have you changed medications since your No No last visit? Any new allergies or adverse reactions No No Had a fall/change in ADL's that may No No increase risk of falls Signs or symptoms of abuse and/or No No neglect since last visit Have you been in the hospital since your No No last visit? Has dressing in place as prescribed Yes Yes Yes Has compression in place as prescribed No Yes N/A Has offloadiing in place as prescribed No Yes N/A Experienced any changes in pain level or No Yes Yes management Left Footwear Regular Shoe Right Footwear Regular Shoe Pain Scale: 0-10 Numeric Is Patient Pain Free? Yes Yes Yes - Nurse 1 - General Ulcer Measurement Start: 12/28/23 11:12 Freq: Status: Active Protocol: Activity Type Activity Date Activity User E-sign Co-sign Detail Recorded Client Recorded Date Recorded By Document 12/28/23 11:12 RB [id number] 12/28/23 11:13 RB Document 01/04/24 11:12 MT [id number] 01/04/24 11:16 MT Document 01/11/24 11:12 DL [id number] 01/11/24 11:15 DL 12/28/23 01/04/24 01/11/24 11:12 11:12 11:12 Wound Center Nurse 1 #1 MID BACK -Combined with other wound No -Current Size (cm) - Length 0.1 0.1 0.1 -Current Size (cm) - Width 0.4 0.1 0.1 -Current Size (cm) - Depth 0.3 0.2 0.1 -Total Square Cm 0.04 0.01 0.01 -Photo Taken Yes -Epithelialization Large 67-100% -Tunneling No Yes -Tunneling Position (O'clock) 12 -Tunneling Distance (cm) 0.2 -Undermining/Tunneling No No -Circular Undermining No No -Exudate Amt Medium None Present None Present -Exudate Type Serosanguineous -Wound Margin Thickened & Flat & Intact Thickened & Rolled Under Rolled Under -Granulation Amt Medium (34-66%) Large (67-100%) Small (1-33%) -Granulation Quality Barrera Pale,Barrera Barrera -Slough/Fibrin Yes No -Necrosis Amt Medium (34-66%) None Present (0 %) -Necrotic Tissue Type Adherent Slough -Structure Exposed N/A N/A -Texture (Iza-wound Skin Appearance) Scarring Assessed Scarring -Moisture (Iza-wound Skin Appearance) Assessed Assessed No Abnormality -Color (Iza-wound Skin Appearance) Assessed Assessed No Abnormality -Temperature (Iza-wound Skin No Abnormality No Abnormality No Abnormality Appearance) (Pt Warm) (Pt Warm) (Pt Warm) -Tenderness on Palpation (Iza-wound No No Skin Appearance) -Ulcer Cleansing Wound Cleanser Soap and Water Rinsed/ Irrigated with Saline -Foul Odor after Cleansing No No No -Anesthetic Used 5% Lidocaine 5% Lidocaine 5% Lidocaine Gel Gel Gel Lower Limb Edema Present NA WC - Nurse 2 - General Ulcer CM Notes Start: 12/28/23 11:12 Freq: Status: Active Protocol: Activity Type Activity Date Activity User E-sign Co-sign Detail Recorded Client Recorded Date Recorded By Document 12/28/23 11:28 GM [id number] 12/28/23 11:31 GM Document 01/04/24 11:37 GM [id number] 01/04/24 11:43 GM Edit Result 01/04/24 11:37 (1) [id number] 01/04/24 13:32 GM Document 01/11/24 11:48 GM [id number] 01/11/24 11:49 GM (1) #1 MID BACK - Wound/Ulcer Outcome => Not Healed 12/28/23 01/04/24 01/11/24 11:28 11:37 11:48 Wound Center Nurse 2 #1 MID BACK -Time 11:30 11:37 11:48 -Correct Patient Yes Yes Yes -Correct Side, Site, Position Yes Yes Yes -Correct Procedure Yes -Procedure Performed Yes -Type of Procedure Debridement -Clinical Debridement Subcutaneous -Tissue Removed Subcutaneous -Post Debridement (cm) - Length 0.3 -Post Debridement (cm) - Width 0.1 -Post Debridement (cm) - Depth 1.0 -Total Square (Post) (cm) 0.03 -Area of Debridement (cm) - Length 0.3 -Area of Debridement (cm) - Width 0.1 -Total Square (Area) (cm) 0.03 -Tunneling No -Undermining/Tunneling No -Circular Undermining No -Wound/Ulcer Outcome Not Healed Healed- Epithelialized -Ulcer Cleansing Rinsed/ Irrigated with Saline -Foul Odor after Cleansing No -Bioengineered Tissue No -Bleeding Controlled with Pressure -Treatment Response Procedure Tolerated Well -Debridement - Subq, 1st 20sq cm Yes -Wound Comment(s) healed but small tunnel at 11 equals 0.5 Pain Scale: 0-10 Numeric Is Patient Pain Free? Yes Yes Yes - Nurse 3 - General Ulcer D/C NN Start: 12/28/23 11:12 Freq: Status: Active Protocol: Activity Type Activity Date Activity User E-sign Co-sign Detail Recorded Client Recorded Date Recorded By Document 12/28/23 11:40 KW [id number] 12/28/23 11:41 KW Document 01/04/24 12:03 MT [id number] 01/04/24 12:03 MT Document 01/11/24 11:53 [id number] 01/11/24 11:53 12/28/23 01/04/24 01/11/24 11:40 12:03 11:53 Wound Care Center Nurse 3 #1 MID BACK -Ulcer Cleansing Not Cleansed -Foul Odor after Cleansing No -Primary Dressing Applied Promogran Aquacel Rope Aquacel Rope -Primary Dressing Covered/Secured with Dry Gauze, Dry Gauze, Dry Gauze, Secured with Secured with Secured with Tape Tape Tape -Aquacel Rope 1 1 -Promogran 1 Pain Scale: 0-10 Numeric Is Patient Pain Free? Yes Yes Yes WC - Visit Discharge Discharge Condition Stable Stable Stable Ambulatory Status Ambulatory,Cane Ambulatory,Cane Ambulatory Transportation Private Auto Private Auto Private Auto Medication Reconcilliation completed & No provided to patient/care provider Clinical Summary of Care Provided Yes Assessment/Plan Assessment/Plan (1) Nonhealing surgical wound: CODE(S): T81.89XA - Other complications of procedures, not elsewhere classified, initial encounter (2) Type 2 diabetes mellitus: CODE(S): E11.9 - Type 2 diabetes mellitus without complications (3) Obesity: CODE(S): E66.9 - Obesity, unspecified (4) Tobacco abuse: CODE(S): Z72.0 - Tobacco use PLAN: Plan Healed. No new concerns. Advised to continue Aquacel and foam dressing to the area for a couple of weeks and then stop. Continue optimal diabetes control and smoking cessation. Call with any questions or concerns. Discharge from the wound center. This note was generated with [employer] dictation software. It may contain incorrect words, spelling, and punctuation that were not noted in checking the note before signing.
== END 2024-01-20 23:59 | disposition home or self-care (01) ==
LOC: WC 11:00
PROVIDERS: PCP Nurse Practitioner Adult Health; Referring Provider Nurse Practitioner Adult Health; Visit Provider Internal Medicine
DX: T81.89XA Other complications of procedures, not elsewhere classified, initial encounter (principal); E11.9 Type 2 diabetes mellitus without complications; Y83.8 Other surgical procedures as the cause of abnormal reaction of the patient, or of later complication, without mention of misadventure at the time of the procedure; E66.9 Obesity, unspecified; Z79.899 Other long term (current) drug therapy; Z87.891 Personal history of nicotine dependence
CPT/HCPCS: 11042; 99213; G0463